=== PATIENT | male | born 1945 | race Hispanic/Latino ===

== ENCOUNTER 2018-10-07 20:51 | Inpatient (IN) | payer MEDICARE, MEDICAID ==
[2018-10-07 22:21] LABS: Lactic Acid 1.2 mmol/L (0.5-2.2)
[2018-10-07 22:26] LABS: Acetaminophen Less than 6.0 mcg/mL (10.0-30.0); Alcohol Less than 10 mg/dL (Less than 10); Salicylate Less than 8.0 mg/dL (15.0-30.0)
[2018-10-07 23:30] LABS: HBCM Index 0.06 S/CO (0-0.79); HBSAg Index 0.18 S/CO (0-0.99); Hep A IgM AB Non-Reactive (NonReactive); Hep A IgM S/CO 0.15 S/CO (0-0.79); Hep B Surf Ag Non-Reactive S/CO (NonReactive); Hep C IgG Ab Non-Reactive (NonReactive); Hep C Index 0.07 S/CO (0-0.79); Hepatitis B Core IgM Abs Non-Reactive (NonReactive)
--- NOTE | 2018-10-08 00:09 | ULT ---
RIGHT UPPER QUADRANT ULTRASOUND: 10/07/18 HISTORY: Jaundice and weakness, abdominal distention with nausea and vomiting. FINDINGS: The pancreas is obscured by bowel gas and not able to be evaluated on this exam. The liver demonstrates heterogeneous appearance with multiple small hypoechoic nodules seen throughou t the liver with largest measurable hypoechoic nodule in the right hepatic lobe measuring approximate ly 1.8 cm. Findings are suggestive of metastatic disease. There is suggestion of a more confluent are a of decreased echogenicity within the right hepatic lobe with this area measuring approximately 5.1 cm. the liver is enlarged measuring 21.5 cm in craniocaudal dimensions. There is shadowing echogenic material within the gallbladder lumen suggesting gallbladder calculi wit h probable small amount of sludge. Gallbladder wall is mildly thickened measuring 0.4 cm, but the gal lbladder is incompletely distended which probably accounts for this finding. The common duct where vi sualized measures 0.4 cm in diameter. However, there is questionable greater degree of dilatation inv olving the extrahepatic common duct, which measures 0.8 cm although this is difficult to definitely d etermine on this exam and again the pancreas is obscured for further evaluation of the common duct at the level of the pancreatic head. Limited visualized portions of the IVC and right kidney demonstrate a normal sonographic appearance. The right kidney measures 11.5 cm in length. Small amount of free fluid is seen adjacent to the liver. A small right pleural effusion is identified. IMPRESSION: 1. Hepatomegaly with heterogeneity of the liver with multiple hypoechoic nodules/masses within t he liver suggesting metastatic disease. CT scan abdomen and pelvis is recommended for further evaluat ion. 2. Cholelithiasis. Gallbladder wall does appear mildly thickened, but the gallbladder is incompl etely distended which may account for this finding. No pericholecystic fluid is identified. 3. Portion of the common duct appears normal in caliber, but there is portion of the common duct which appears more dilated, this is not well evaluated and this could be better assessed on a follow up CT exam. 4. Small amount of ascites adjacent to the liver. 5. Small right pleural effusion. POS: [facility]
[2018-10-08 02:56] VITALS: BMI 40.0
--- NOTE | 2018-10-08 08:01 | CT ---
PRELIMINARY REPORT/[facility]/EMERGENTY AFTER-HOURS PROCEDURE CT Abdomen and Pelvis Without Contrast EXAM DATE/TIME: 10/08/2018 1:35 AM CLINICAL HISTORY: 73 years old, male; Pain; Abdominal pain; Prior surgery; Patient HX: Er 19; M73 presents to ed xfer f rom another facility C/O jaundice onset x2-3 wks [employer]. PT reports cp, suprapubic abd pain, weakness, t remors, urinary incontinence, and slight abd distension onset x2-3 wks [employer]. PT also reports some new onset diffuse pruritus, and n/v. 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 Surgical history of prostatectomy TECHNIQUE: Axial computed tomography images of the abdomen and pelvis without contrast. Coronal reformatted images were created and reviewed. COMPARISON: No relevant prior studies available. FINDINGS: Lower thorax: Numerous up to 3 cm soft tissue nodules within the lungs. Moderate-large right pleural effusions. Mild-moderate right middle and lower lobe air space opacity-atelectasis. ABDOMEN: Liver: Enlarge 23 cm liver with extensive low density lesions - large confluent up to 10 x 18 cm area low density crossing right and left lobes of the liver. Gallbladder and bile ducts: Gallbladder appears contracted, limits evaluation. Rounded 1 mm calcific stones within the gallbladder. Pancreas: Ovoid 2 x 1.5 cm soft tissue structure along pancreas head and second portion duodenum. Spleen: Normal. No splenomegaly. Adrenals: Normal. No mass. Kidneys and ureters: Normal. No hydronephrosis. Stomach and bowel: Normal. No obstruction. No mucosal thickening. Appendix: Appendix - visualized portions appear normal. PELVIS: Bladder: Unremarkable as visualized. Reproductive: Prostate remains present with central calcifications. Subperitoneal space: Minimal perirectal and pelvic free fluid. ABDOMEN and PELVIS: Intraperitoneal space: Normal. No free air. No significant fluid collection. Bones/joints: Chronic degenerative changes of the lumbar spine. Extensive areas sclerosis throughout the osseous structures, particularly ribs, spine, pelvis. Soft tissues: Right inguinal surgical clips. Vasculature: Chronic atherosclerotic calcification of the vasculature. Lymph nodes: Multiple up to 1.5 cm diaphragmatic lymph nodes. IMPRESSION: 1. Prostate present. 2. Findings may represent primary neoplasm in liver-cholangiocarcinoma vs. extensive hepatic metasis. 3. Multiple lung nodules, areas sclerosis involving osseous structures, anterior diaphragmatic lympha denopathy - suspicious for metastatic disease. 4. Ovoid 2 x 1.5 cm soft tissue structure along pancreas head and second portion duodenum. - Possible enlarged lymph node vs pancreatic mass. Post contrast study is recommended. 5. Minimal perirectal and pelvic free fluid. 6. Contracted gallbladder with small internal stones. No evidence of intrahepatic or extrahepatic mis iary ductal dilatation. 7. Moderate-large right pleural effusions. Mild-moderate right middle and lower lobe air space opacit yatelectasis. Thank you for allowing us to participate in the care of your patient. Dictated and Authenticated by: Natalie Valdez MD 10/08/2018 3:54 AM Central Time ([place] & [place]) FINAL REPORT CT ABDOMEN AND PELVIS WITHOUT CONTRAST: HISTORY: Abdominal pain. Complaining of jaundice. TECHNIQUE: Noncontrast enhanced CT images of the abdomen and pelvis were obtained. FINDINGS: The images demonstrate extensive lung metastatic lesions. A right-sided pleural effusion is seen. E xtensive areas of heterogeneity are seen within the liver, compatible with extensive hepatic metastas es. There is a peripancreatic mass to the right of the pancreatic head, most compatible with a retro peritoneal lymph node and/or metastases. Cholelithiasis is noted. A preliminary exam was performed by [facility]. I concur with the dictation from [facility]. POS: [facility]
[2018-10-08] MEDS ORDERED: Prevnar 13-Val Conj/PF 0.5 ML SYRINGE IM ONE (09:00)
[2018-10-08] MEDS ORDERED: Iopamidol 370 76% 50 ML VIAL FS ONE (09:25)
[2018-10-08] MEDS: Sodium Chloride 0.9% 1,000 ML IV SCH (10:49)
--- NOTE | 2018-10-08 11:00 | RAD ---
LEFT HIP RADIOGRAPHS TWO VIEWS: 10/08/2018 PROVIDED CLINICAL HISTORY: Pain, status post fall. FINDINGS: There is no evidence for fracture or other acute osseous abnormality. If there is persistent clinica l concern, conservative management and follow-up imaging are advised. IMPRESSION: As above. POS: [facility]
--- NOTE | 2018-10-08 11:01 | RAD ---
LEFT KNEE RADIOGRAPHS FOUR VIEWS: 10/08/2018 PROVIDED CLINICAL HISTORY: Left knee pain, status post injury. FINDINGS: There is no evidence for fracture or other acute osseous abnormality. If there is persistent clinica l concern, conservative management and follow-up imaging are advised. IMPRESSION: As above. POS: [facility]
--- NOTE | 2018-10-08 13:39 | HP ---
CHIEF COMPLAINT: Generalized weakness. HISTORY OF PRESENT ILLNESS: This patient is a 73-year-old male, who states he was feeling well until couple of months ago. At that time, he started having some pain in his upper abdomen, it simply progressed. Since then, he has had some associated shortness of breath. He also has had decreased appetite, some watery emesis, and a decrease in bowel movements. The patient's family noted that he was having some generalized weakness and weight loss and have been encouraging to come to get evaluated; however, the patient had held off until this admission when the family finally convinced him that he needed to come to the hospital and get evaluated. The patient also reports that due to his weakness, he fell a couple of weeks ago and has had some pain in his left knee and left hip. REVIEW OF SYSTEMS: The patient does noticed the discoloration of his skin. He has had decreased bowel movements. He has had urinary incontinence since his prostate cancer treatment 25 years ago [address] [facility]. He has had no appetite, some nausea, some vomiting, decreased bowel movements, and pain in his left hip and knee. No fevers or chills. He does have some shortness of breath, but no cough. All other systems were reviewed and all pertinent positives and negatives noted in the history of present illness. PAST MEDICAL HISTORY: Only notable for the prostate cancer treated at [facility] 25 years ago with surgery, chemotherapy, and external beam radiation therapy. PAST SURGICAL HISTORY: Only the prostate surgery as mentioned above. FAMILY HISTORY: Mother at 97. Father at 85 of lung cancer. Brother with cancer as well. SOCIAL HISTORY: The patient is single. He has no kids. He has a history of smoking, but quit 20 years ago. States he was never a heavy smoker. He also quit drinking alcohol about 20 years ago. Also states he was never a heavy drinker. The patient does not have a primary care physician. He lives in [place]. He is full code and his brother Mason would be his surrogate decision maker should that become necessary. ALLERGIES: NONE. MEDICATIONS: None. PHYSICAL EXAMINATION: VITAL SIGNS: Temperature is 97.8, pulse 89, respirations 18, O2 saturation 94% on room air, and BP is 118/58. GENERAL APPEARANCE: Age-appropriate male. He is generally jaundiced. He is awake and alert, appropriate, no distress. HEENT: He has icteric sclerae. No acute lesions. Denture is in place. NECK: Supple and symmetric with no lymphadenopathy, JVD, or bruits. HEART: Regular rate and rhythm without murmurs, gallops, or rubs. LUNGS: Diminished in the right base with otherwise no wheezes or rales. He does have slightly generally diminished breath sounds. ABDOMEN: He has slight tenderness in the suprapubic area. His right upper quadrant is not significantly tender. However, he has enlarged liver margin, which is palpable below the ribs about 4 to 5 cm. Bowel sounds are normal. EXTREMITIES: He has mild chronic appearing edema of the right lower extremity, which is nonpitting, otherwise appears to have no cyanosis or clubbing. He has relatively good range of motion with the left hip and knee. LABORATORY DATA: White count 14.9, hemoglobin 11.8, platelets 372. INR is 1.3 and PTT 37.7. Sodium 136, potassium 4.1, chloride 105, CO2 is 16, BUN 72, creatinine is 2.51, and glucose 111. Lactic acid 2.3 with subsequent at 1.2. Total bilirubin is 17.1, AST 413, ALT 243, alkaline phosphatase 1579, and ammonia is 42. Troponin 0.013 and 0.011 and BNP 29. Albumin is 2.5, globulin 4.0, and lipase 132. His toxicology screen is negative. Hepatitis panel is negative. Chest x-ray shows some right lower lobe opacity concerning for possible infiltrate. Ultrasound of the abdomen reveals hepatomegaly with heterogeneity of the liver and multiple hyperechoic nodules/masses within the liver suggesting metastatic disease. CT is recommended. The gallbladder wall does appear mildly thickened, but it is incompletely distended, portion of the common duct appears normal in caliber. There is a portion of the common duct, which appears more dilated, it is not well evaluated. Small amount of ascites adjacent to the liver and small right pleural effusion. CT scan reveals presence of a prostate findings concerning for primary neoplasm in the liver, cholangiocarcinoma versus extensive hepatic metastasis. There are multiple lung nodules, areas of sclerosis involving osseous structures, anterior diaphragmatic lymphadenopathy suspicious for metastatic disease, an ovoid 2 x 1.5 cm soft tissue structure on the pancreatic head and second portion of the duodenum. Possible enlarged lymph node versus a pancreatic mass. Minimal perirectal and peripelvic fluid. No evidence of intrahepatic or extrahepatic biliary duct dilatation. [id number] right pleural effusion and [id number] right middle and lower lobe airspace opacity, atelectasis. IMPRESSION AND PLAN: 1. Acute liver failure with evidence of significant neoplastic disease involving the liver. 2. Neoplastic process involving the liver of the biliary tract, lymph nodes, and lung. Etiology at this point is unknown. We will need to pursue possible biopsy. We will ask Gastroenterology to see the patient in light of the extensive liver disease to see if this is something that can be pursued from their perspective in regard to attempting biopsy. The patient has a history of prostate cancer, appears that a prostate is present, which should not be the case. We will check a PSA, although it seems like unlikely metastatic pattern 25 years after a prostate cancer. 3. Acute renal failure. Consult Nephrology. We will gently hydrate. May need some albumin. 4. Pleural effusion, likely secondary to the liver disease. The patient feels subjectively short of breath, but my impression is this is more likely related to the liver enlargement and is related to the pleural effusion. He is borderline hypoxic. We will continue to monitor. He would be slightly high risk for thoracentesis. 5. Left hip and knee pain. We will obtain plain films just to ensure there is no evidence of metastatic disease. We will get Physical Therapy to evaluate. 6. Disposition. We will get Palliative Care consult. Job ID: [id number]
[2018-10-08] MEDS: HYDROcodone/Acetaminophen 5/325 mg Tablet PO PRN (14:55)
[2018-10-08] MEDS: Albumin 25% 25 GM/100 ML BOT IVPB SCH ×2 (17:31→22:51)
--- NOTE | 2018-10-08 17:53 | CON ---
DATE OF CONSULTATION: HISTORY OF PRESENT ILLNESS: Mr. Phillip is a 73-year-old male, who was admitted for abdominal pain and generalized weakness. Imaging of the belly showed multiple liver lesions suggestive of metastatic liver cancer. We are now being consulted for his acute kidney injury. Please note, this patient has history of decreased p.o. intake as well as weight loss. REVIEW OF SYSTEMS: Positive for abdominal pain. No nausea. No vomiting. Decreased appetite. Decreased energy level. Positive for weight loss. No diarrhea. No constipation. No dysuria. No urinary frequency. No productive cough. No fever or chills. No syncopal episode. No headache. No shortness of breath. Positive for abdominal pain. No dysuria. PAST MEDICAL HISTORY: History of prostate cancer, status post radiation and chemotherapy? status post prostate biopsy. PAST SURGICAL HISTORY: Status post prostate biopsy. SOCIAL HISTORY: The patient is single. He has no children. He is not . Lives in [place]. He is a retired employee of a [employer]. Education, 5th grade. Lives alone. No alcohol. No smoking. No IV drug abuse. No blood transfusion. ALLERGIES: NONE. TRAUMA: None. IMMUNIZATION: Not Up-to-date. HOSPITALIZATIONS: Please see past medical history. FAMILY HISTORY: No family history of ESRD. PHYSICAL EXAMINATION: VITAL SIGNS: Blood pressure 112/58, heart rate 93, respiratory rate 20, temperature 97.8, and pulse ox 94%. GENERAL: Noted to be awake, alert, supine, comfortable, obese, not in distress. SKIN: Adequate turgor. HEENT: He has pinkish conjunctivae. Anicteric sclerae. No neck mass. No carotid bruits. No JVD. CHEST: No deformities. LUNGS: Clear breath sounds. No wheezing. No crackles. HEART: Normal sinus rhythm. No murmurs, gallops, or rubs. ABDOMEN: Globular, soft, and nontender. No masses. EXTREMITIES: No edema. No deformities. MEDICATIONS: Currently normal saline 75 mL/h and [place] 5/325 q.4h p.r.n. LABORATORY DATA: Laboratories of October 07, 2018; white count 14.9, hemoglobin 11.8. Sodium 136, potassium 4.1, chloride 106, carbon dioxide 16, BUN 72, creatinine 2.51, glucose 111, calcium 8.1, AST 413, ALT 243, alkaline phosphatase 1579, albumin 2.5. Troponin I less than 0.010. PSA is 0.38. DIAGNOSTIC DATA: CT scan of the abdomen and pelvis shows an enlarged liver with multiple hypodense lesions-hepatic metastasis versus neoplasm in the liver/cholangiocarcinoma. He has also multiple lung nodules. There is an ovoid finding in the head of the pancreas. There is a minimal perirectal fluid. He has also moderate large right pleural effusions. ASSESSMENT AND PLAN: 1. Acute kidney injury consider hemodynamically-mediated renal dysfunction. In addition, we will rule out acute tubular necrosis by doing urinalysis. We will also review urine chemistries. For the moment due to the weight loss and decreased p.o. intake, continue normal saline. I have added albumin 25 g IV q.6 hours for the next 3 days. There is no indication for any dialytic intervention. 2. Metastatic liver disease/primary liver cancer-GI to evaluate the patient. For the moment, agree with current management. Continue supportive care. Job ID: [id number] MTDD
[2018-10-08] MEDS ORDERED: GoLYTELY 4,000 ml Bottle PO SCH (19:30)
--- NOTE | 2018-10-08 21:12 | CON ---
DATE OF CONSULTATION: 10/08/2018 HISTORY OF PRESENT ILLNESS: The patient is a 73-year-old gentleman, who reports he was in his normal state of health until two weeks ago when he fell and hit his abdomen and lower extremities. Since then, he has been having pain. He has lost a large amount of weight, and then family members noticed he was becoming jaundice, and sought care in the emergency room. He has been vomiting. He denies any melena or hematochezia. He has not seen a physician in 30 years. PAST MEDICAL HISTORY: Significant for prostate cancer. PAST SURGICAL HISTORY: Includes prostate surgery. MEDICATIONS: None. ALLERGIES: NO KNOWN MEDICAL ALLERGIES. SOCIAL HISTORY: He stopped smoking and drinking 30 years ago. FAMILY HISTORY: Negative for GI or liver disease. REVIEW OF SYSTEMS: Ten systems review were negative except for above. PHYSICAL EXAMINATION: GENERAL: An elderly male, in no acute distress. VITAL SIGNS: Temperature 97.6, pulse 92, respiratory rate 20, blood pressure 113/66. HEENT: Some scleral icterus. NECK: Supple. CHEST: Clear. CARDIOVASCULAR: Regular rate and rhythm. ABDOMEN: Soft, nontender without organomegaly or masses. He has a large inguinal hernia in the right groin. EXTREMITIES: Normal. NEUROLOGIC: Nonfocal. LABORATORY DATA: Negative hepatitis serology. CT of the abdomen and pelvis showed a calcified prostate present. Multiple hepatic masses, multiple lung nodules, and an ovoid 2 x 1.5 cm soft tissue structure along the pancreatic head, some minimal perirectal and pelvic free fluid, contracted gallbladder with small internal stones, but no ductal dilatation, and moderate large right pleural effusion. ASSESSMENT: 1. Liver metastasis of unknown etiology. 2. Multiple lung nodules. 3. History of prostate cancer. 4. Cholelithiasis. RECOMMENDATIONS: 1. EGD, colonoscopy. 2. If that does not reveal the source of the patient's metastatic disease, then liver biopsy would be the best bet to obtain tissue. 3. Tumor markers. 4. PSA. Job ID: [id number]
[2018-10-09] MEDS: Sodium Chloride 0.9% 1,000 ML IV SCH ×4 (02:18→20:34)
[2018-10-09] MEDS: HYDROcodone/Acetaminophen 5/325 mg Tablet PO PRN (02:22)
[2018-10-09] MEDS: Albumin 25% 25 GM/100 ML BOT IVPB SCH ×2 (03:55→09:55)
[2018-10-09 04:24] LABS: #Eosinphils 0.1 thou/uL (0.0-0.7); #Lymphocytes 1.5 thou/uL (1.20-3.40); #Monocytes 0.8 thou/uL (0.11-0.59); #Neutrophils 12.4 thou/uL (1.40-6.50); %Basophils 0.1 % (0.0-1.0); %Eosinophils 0.5 % (0.0-10.0); %Lymphocytes 10.4 % (21.0-51.0); %Monocytes 5.5 % (0.0-10.0); %Neutrophils 83.4 % (42.0-75.0); Hemoglobin 9.9 g/dL (14.0-18.0); Mean Corpuscular HGB CONC 32.6 g/dL (32.0-36.0); Mean Corpuscular Hemoglobin 28.4 pg (27.0-31.0); Mean Corpuscular Volume 87.2 fL (78.0-98.0); Mean Platelet Volume 7.9 fL (7.4-10.4); Platelet Count 335 thou/uL (130-400); RBC Distribution Width 14.9 % (11.5-14.5); Red Blood Cell (RBC) Count 3.49 mill/uL (4.70-6.10); White Blood Cell (WBC) Count 14.8 thou/uL (4.8-10.8)
[2018-10-09 04:29] LABS: Anion Gap 18 mmol/L (10-20); BUN (Urea Nitrogen) 64 mg/dL (8.4-25.7); Calc. Creatinine Clearance 39 mL/min (70-130); Calcium 8.8 mg/dL (7.8-10.44); Carbon Dioxide 18 mmol/L (23-31); Chloride 107 mmol/L (98-107); Estimated GFR-MDRD 24; Glucose 82 mg/dL (83-110); Potassium 4.3 mmol/L (3.5-5.1); Sodium 139 mmol/L (136-145)
[2018-10-09] MEDS ORDERED: Ondansetron ODT 4 MG TAB PO PRN (07:31)
[2018-10-09] MEDS ORDERED: Bisacodyl 5 MG TAB PO PRN (07:31)
[2018-10-09] MEDS ORDERED: Loperamide HCl 2 MG CAP PO PRN (07:31)
[2018-10-09] MEDS ORDERED: Ondansetron PF 4 MG/2 ML Vial IVP PRN (07:31)
[2018-10-09] MEDS ORDERED: Eucerin (Mineral Oil/Petrolatum,White) 30 gm Jar TOP PRN (07:31)
[2018-10-09] MEDS ORDERED: Sodium Chloride 0.65% Nasal 44 ML BOT EA NARE PRN (07:31)
[2018-10-09] MEDS ORDERED: hydrALAZINE 20 MG/ML VIAL SLOW IVP PRN (07:31)
[2018-10-09] MEDS ORDERED: Loratadine 10 MG TAB PO PRN (07:31)
[2018-10-09] MEDS ORDERED: Senokot S 8.6-50 MG TAB PO PRN (07:31)
[2018-10-09] MEDS ORDERED: Calcium Carbonate 500 MG ChewTAB PO PRN (07:31)
[2018-10-09] MEDS ORDERED: Cepastat Lozenges 1 LOZ PO PRN (07:31)
[2018-10-09] MEDS ORDERED: Artificial Tears 18 DROP/0.9 ML EA EYE PRN (07:31)
--- NOTE | 2018-10-09 08:46 | PRG ---
DATE OF SERVICE: 10/09/2018 SERVICE: Renal Medicine. SUBJECTIVE: Mr. Phillip is a 73-year-old male, seen by the Renal Service for his acute kidney injury. The patient is currently being volume repleted for a possibility of hemodynamically-mediated renal dysfunction. He was also seen by the GI Service due to findings of metastatic lesions to the liver and the lungs. He is supposed to undergo upper GI and lower GI endoscopy today. In addition, he has history of prostate cancer, but the PSA is said to be within normal. The patient denies any chest pain or shortness of breath. The patient is currently receiving IV albumin as well as normal saline. OBJECTIVE: VITAL SIGNS: Blood pressure 95/53, heart rate 84, respiratory rate 16, temperature 97.6, and pulse ox 94%. GENERAL: The patient is awake, alert, comfortable, not in distress. SKIN: Adequate turgor. HEENT: He has pinkish conjunctivae. Anicteric sclerae. NECK: No neck mass. No carotid bruits. No JVD. CHEST: No deformities. LUNGS: Decreased breath sounds. HEART: Normal sinus rhythm. No murmur. No gallops. No rubs. ABDOMEN: Globular, soft, nontender. No masses. EXTREMITIES: No edema. No deformities. MEDICATIONS: Medications of October 09, 2018, was reviewed. LABORATORY DATA: Laboratories of October 09, 2018; white count 14.8, hemoglobin 9.9. Sodium 139, potassium 4.3, chloride 107, carbon dioxide 18, BUN 64, and creatinine 2.66. Carcinoembryonic antigen noted at 11,574. PSA 0.38. ASSESSMENT AND PLAN: 1. Acute kidney injury, most likely hemodynamically-mediated renal dysfunction. Empiric volume repletion. Currently, on normal saline and albumin. My plan is to increase the normal saline to 125 mL/hour. The patient is also mildly hypotensive but is asymptomatic. 2. Metastatic liver lesion - primary is unknown. The patient will be undergoing an upper and lower GI endoscopy. GI is following. Overall, prognosis remains guarded with this patient. Recheck basic metabolic panel and CBC in a.m. Job ID: [id number]
--- NOTE | 2018-10-09 09:49 | PDOC.PN ---
- Subjective Encounter Start Date: 10/09/18 Encounter Start Time: 07:10 -: old records requested/rev Patient seen and examined. No new complaints. No overnight events - Objective Resuscitation Status - Order Detail: 10/08/18 08:27 Resuscitation Status Routine Resuscitation Status: FULL: Full Resuscitation Discussed with: Patient Additional comments: Brother Navjot Cuevas is his surrogate decision maker if necessary MAR Reviewed: Yes Vital Signs & Weight: Vital Signs (12 hours) Temp Pulse Resp BP BP Pulse Ox 10/09/18 08:25 97.7 F 87 20 110/56 L 94 L 10/09/18 08:00 94 L 10/09/18 04:00 97.6 F 84 16 95/53 L 94 L 10/08/18 23:17 97.7 F 100 20 95/59 L 96 Weight Weight 247 lb 15.968 oz I&O: 10/08/18 10/09/18 10/10/18 06:59 06:59 06:59 Intake Total 0 800 Balance 0 800 Result Diagrams: 10/09/18 03:52 10/09/18 03:52 Radiology Reviewed by me: Yes (CT, US noted) Phys Exam - Physical Examination Constitutional: NAD HEENT: PERRLA, moist MMs icterus+ Neck: no JVD, supple Respiratory: no wheezing, no rales, no rhonchi Cardiovascular: RRR, no significant murmur, no rub Gastrointestinal: soft, non-tender, no distention, positive bowel sounds Musculoskeletal: no edema, pulses present Neurological: non-focal, normal sensation Lymphatic: no nodes Psychiatric: normal affect, A&O x 3 Skin: no rash, normal turgor Dx/Plan (1) Acute kidney failure Status: Acute (2) Atelectasis, right Code(s): J98.11 - ATELECTASIS Status: Acute (3) Cholelithiases Code(s): K80.20 - CALCULUS OF GALLBLADDER W/O CHOLECYSTITIS W/O OBSTRUCTION Status: Acute (4) Metastatic cancer Code(s): C79.9 - SECONDARY MALIGNANT NEOPLASM OF UNSPECIFIED SITE Status: Acute (5) Pancreatic mass Status: Acute (6) Pleural effusion, right Code(s): J90 - PLEURAL EFFUSION, NOT ELSEWHERE CLASSIFIED Status: Acute (7) Anemia, normocytic normochromic Code(s): D64.9 - ANEMIA, UNSPECIFIED Status: Chronic (8) Morbid obesity with BMI of 40.0-44.9, adult Code(s): E66.01 - MORBID (SEVERE) OBESITY DUE TO EXCESS CALORIES; Z68.41 - BODY MASS INDEX (BMI) 40.0-44.9, ADULT Status: Chronic - Plan cont current plan of care * pt has advanced metastatic cancer, primary site is unclear but likely GI tract , today EGD and colonoscopy * oncology will be consulted * palliative care consulted * prognosis is poor * medication reviewed as below * symptomatic treatment. Review of Systems - Review of Systems ENT: negative: Ear Pain, Ear Discharge, Nose Pain, Nose Discharge, Nose Congestion, Mouth Pain, Mouth Swelling, Throat Pain, Throat Swelling, Other Respiratory: negative: Cough, Dry, Shortness of Breath, Hemoptysis, SOB with Excertion, Pleuritic Pain, Sputum, Wheezing Cardiovascular: negative: chest pain, palpitations, orthopnea, paroxysmal nocturnal dyspnea, edema, light headedness, other Gastrointestinal: negative: Nausea, Vomiting, Abdominal Pain, Diarrhea, Constipation, Melena, Hematochezia, Other Genitourinary: negative: Dysuria, Frequency, Incontinence, Hematuria, Retention , Other Musculoskeletal: negative: Neck Pain, Shoulder Pain, Arm Pain, Back Pain, Hand Pain, Leg Pain, Foot Pain, Other - Medications/Allergies Allergies/Adverse Reactions: Allergies Allergy/AdvReac Type Severity Reaction Status Date / Time No Known Drug Allergies Allergy Verified 10/08/18 07:53 Medications: Current Medications Hydrocodone Bitart/Acetaminophen ([place] 5/325) 1 tab PO Q4H PRN PRN Reason: Pain Last Admin: 10/09/18 02:22 Dose: 1 tab Albumin Human (Albumin 25%) 25 gm IVPB Q6H ODIN Stop: 10/09/18 10:01 Last Admin: 10/09/18 03:55 Dose: 25 gm Artificial Tears (Tears Naturale) 2 drop EA EYE PRN PRN PRN Reason: Dry Eyes Bisacodyl (Dulcolax) 10 mg PO DAILYPRN PRN PRN Reason: Constipation Calcium Carbonate (Tums) 1,000 mg PO Q4H PRN PRN Reason: Heartburn or Indigestion Guaifenesin (Robitussin Sf) 200 mg PO Q4H PRN PRN Reason: Cough Hydralazine HCl (Apresoline) 10 mg SLOW IVP Q4H PRN PRN Reason: SBP > 180 and HR < 70 Sodium Chloride (Normal Saline 0.9%) 1,000 mls @ 75 mls/hr IV .[id number] COUNT INCLUDES [facility] Last Admin: 10/09/18 02:21 Dose: 1,000 mls Loperamide HCl (Imodium) 2 mg PO PRN PRN PRN Reason: Diarrhea/Loose Stools Loratadine (Claritin) 10 mg PO DAILYPRN PRN PRN Reason: Sinus Symptoms Mineral Oil/White Petrolatum (Eucerin Cream) 0 gm TOP BIDPRN PRN PRN Reason: Dry Skin Ondansetron HCl (Zofran Odt) 4 mg PO Q6H PRN PRN Reason: Nausea/Vomiting Ondansetron HCl (Zofran) 4 mg IVP Q6H PRN PRN Reason: Nausea/Vomiting Senna/Docusate Sodium (Senokot S) 2 tab PO BID PRN PRN Reason: Constipation Sodium Chloride ([place] Nasal [place] 0.65%) 0 ml EA NARE QIDPRN PRN PRN Reason: Nasal Congestion Throat Lozenges (Cepastat Lozenges) 1 lakshmi PO Q2H PRN PRN Reason: Sore Throat
[2018-10-09] MEDS ORDERED: PROVENTIL INHALER 6.7 G (200 INHALATIONS) ONE (12:52)
[2018-10-09] MEDS ORDERED: PHENYLEPHRINE-NS 100 MCG/ML 10 ML SYRINGE ONE (12:52)
[2018-10-09] MEDS ORDERED: PROPOFOL 200 MG/20 ML VIAL ONE (12:52)
[2018-10-09] MEDS ORDERED: Lidocaine 1% PF 5 ML VIAL ONE (12:52)
--- NOTE | 2018-10-09 13:48 | ULT ---
SCROTAL ULTRASOUND: CLINICAL HISTORY: Edema. FINDINGS: There is significant soft tissue prominence of the scrotum with interspersed, linear oriented decreas ed echogenicity, compatible with edema. Testes and epididymides are not visualized for comment. IMPRESSION: 1. Prominent soft tissues of the scrotum. This may relate to infectious or inflammatory process. C orrelate clinically. 2. Nonvisualization of either testis or epididymis. Follow-up imaging may be obtained upon resolution of soft tissue prominence, as clinically indicated. POS: ALICE
--- NOTE | 2018-10-09 15:16 | CON ---
DATE OF CONSULTATION: REASON FOR CONSULT: Metastatic disease. HISTORY OF PRESENT ILLNESS: Mr. Phillip is a pleasant 73-year-old gentleman only with remote history of prostate cancer 25 years ago, who over the last several weeks has been having abdominal pain, decreased appetite, and generalized weakness. He was brought to the emergency room for further evaluation by his family. He underwent abdomen and pelvis CT, which showed multiple lung nodules measuring up to 3 cm. He had a [id number] right pleural effusion. He had an enlarged liver measuring 23 cm with a confluent area measuring 10 x 18 cm concerning for malignancy. He had a 2 x 1.5 cm soft tissue density at the pancreatic head. He was jaundiced with a bilirubin of 17. He was admitted for further workup. His PSA was 0.38. His AFP was 3.0. His CEA was 11,574. GI has been consulted and we were asked consulted for assistance with diagnosis. PAST MEDICAL AND SURGICAL HISTORY: 1. Prostate cancer, status post surgery, chemo, and external beam radiation. 2. Engorged testicles since prostate cancer. ALLERGIES: NO KNOWN DRUG ALLERGIES. HOME MEDICATIONS: None. FAMILY HISTORY: Father from lung cancer, was a smoker. SOCIAL HISTORY: Single. Remote history of smoking, quit 30 years ago. Denies alcohol or illicit drug use. REVIEW OF SYSTEMS: A 10-point review of systems is negative except for noted in HPI. PHYSICAL EXAMINATION: VITAL SIGNS: Temperature is 97.7, pulse is 87, respiratory rate 20, blood pressure is 110/56. He is 94% on room air. GENERAL: Well-developed, well-nourished male, in no acute distress. HEENT: Normocephalic and atraumatic. Pupils equal and reactive to light. sclera icteric. NECK: Supple. CV: Regular rate and rhythm. LUNGS: Clear. ABDOMEN: Obese. He has a palpable liver. He has a possible inguinal hernia with enlarged scrotum. EXTREMITIES: No clubbing, cyanosis, or edema. SKIN: No rash. Positive jaundice. HEMATOLOGIC: No petechiae or purpura. NEUROLOGICAL: Nonfocal. PSYCH: The patient is alert, oriented and appropriate. PERTINENT LABS AND X-RAYS: Current WBCs 14.8, hemoglobin 9.9, hematocrit 30.4, and platelet count 335,000. 84% neutrophils, 10% lymphocytes. PT 16.5, INR is 1.3 , PTT 37.7. Sodium is 136, potassium 4.1, chloride 105, CO2 of 16, BUN is 72, creatinine 2.51, lactic acid is 1.2, calcium 8.1, bilirubin is 17.1, AST is 413, ALT is 243 , alkaline phosphatase is 1579. Ammonia is 42. BNP is 29. Serum total protein 6.5, albumin 2.5, globulin 4.0. Hepatitis panel negative. Radiology per HPI. ASSESSMENT: 1. Metastatic disease of the liver. 2. Likely metastatic lung lesions. 3. Right pleural effusion. 4. Elevated CEA. 5. Acute kidney injury. 6. Possible biliary obstruction. DISCUSSION: GI is planning an EGD and colonoscopy today for biopsy. If biopsies are nondiagnostic, he will need a CT-guided liver biopsy. He will require close monitoring of his liver and kidney. If these counts do no improve, it will be very difficult to treat patient with chemotherapy. Further recommendations will be based on biopsy results. Thank you for the consult. Job ID: [id number] [facility]ALK[facility]
[2018-10-09] MEDS ORDERED: Ondansetron HCl/PF 4 MG/2 ML Vial IVP PRN (16:02)
--- NOTE | 2018-10-09 16:57 | OP ---
DATE OF PROCEDURE: 10/09/2018 MIME ARTIST SURGEON: None. PROCEDURE PERFORMED: 1. Esophagogastroduodenoscopy with biopsies. 2. Colonoscopy with biopsies. INDICATIONS: 1. Metastatic disease to liver and lung, unknown origin. 2. Elevated CEA level. MEDICATIONS: See Anesthesia record. FINDINGS: After discussion of the risks, benefits, and alternatives of the procedure, informed consent was obtained and witnessed. Pre-endoscopic cardiopulmonary examination was satisfactory. A time-out was performed before sedation was achieved. Sedation was achieved with Anesthesia assistance in the endoscopy unit. A Pentax adult upper endoscope was placed into the oropharynx and passed through the cricopharyngeus under direct visualization. The esophageal mucosa appeared normal in the proximal mid esophagus, but in the distal esophagus, there was evidence of severe erosive esophagitis with several large linear ulcerations extending up several centimeters from the GE junction. There is no mass at the gastroesophageal junction. No evidence of varices. The endoscope was advanced into the stomach. Forward and retroflexed views of the entire gastric mucosa were obtained. The gastric mucosa appears erythematous and edematous with a few small erosions in the gastric antrum and body. Biopsies were obtained from the gastric antrum and body to rule out H pylori infection. There was a single small umbilicated nodule in the gastric body, which may just represent benign gastric erosion, but biopsies were separately obtained of this gastric nodule. The endoscope was passed through the pylorus and into the first and second portions of the duodenum. In the posterior part of the duodenal bulb, there is a shallow small ulceration. There are several other smaller erosions throughout the first and second portions of the duodenum. The upper endoscope was completely withdrawn and the patient was repositioned. Digital rectal exam was performed, which was unremarkable. A Pentax adult colonoscope was inserted into the rectum and passed forward to the cecum in the usual fashion. The cecal base was identified by the appendiceal orifice as well as the ileocecal valve. The terminal ileum was not intubated. The colonoscope was then slowly withdrawn in a gradual and circumferential manner with careful examination of the entire colonic mucosa. The quality of the prep was good. In the ascending colon, there was a sessile polyp measuring about 7 mm in diameter. This was not removed. In the sigmoid colon, there is a large nonobstructing friable mass. This appears likely malignant. It is located from 30 to 35 cm from the anal verge. Just proximal to this mass, there is a separate large pedunculated polyp, which I did not attempt to remove today. I obtained multiple biopsies of this sigmoid colon mass and I tattooed the area submucosally. Note that due to difficulty with submucosal injection as well as scarcity of the tattoo pigment, only about 1 mL of tattoo ink was successfully injected submucosally, on the opposite side from the lesion. Retroflexion in the rectum demonstrated internal hemorrhoids. The colonoscope was completely withdrawn and the patient allowed to recover. The patient tolerated the procedure well. There were no immediate postprocedure complications. IMPRESSION: 1. Large nonobstructing sigmoid colon mass from 30 to 35 cm from the anal verge, biopsied. Tattooed submucosally opposite to the lesion, only about 1 mL of tattoo ink successfully injected. 2. Large pedunculated sigmoid polyp just proximal to the sigmoid mass, not removed. 3. A 7-mm ascending colon polyp, not removed. 4. Internal hemorrhoids. 5. Severe distal esophagitis. 6. Erosive gastritis and duodenitis, biopsied. 7. Small gastric nodule, biopsied separately. RECOMMENDATIONS: 1. Follow up pathology results. 2. Anticipate Oncology and possibly surgical consultation once biopsy results become available. I do anticipate that this will come back to be colonic adenocarcinoma. Note that the mass is nonobstructing and the patient already has a significant burden of widespread metastatic disease. 3. Advanced diet. 4. Daily PPI. Job ID: [id number]
[2018-10-10 04:28] LABS: #Eosinphils 0.1 thou/uL (0.0-0.7); #Lymphocytes 1.2 thou/uL (1.20-3.40); #Monocytes 0.9 thou/uL (0.11-0.59); #Neutrophils 11.8 thou/uL (1.40-6.50); %Eosinophils 0.8 % (0.0-10.0); %Lymphocytes 8.8 % (21.0-51.0); %Monocytes 6.7 % (0.0-10.0); %Neutrophils 83.7 % (42.0-75.0); Hemoglobin 9.9 g/dL (14.0-18.0); Mean Corpuscular HGB CONC 32.9 g/dL (32.0-36.0); Mean Corpuscular Hemoglobin 28.6 pg (27.0-31.0); Mean Corpuscular Volume 87.1 fL (78.0-98.0); Mean Platelet Volume 7.9 fL (7.4-10.4); Platelet Count 310 thou/uL (130-400); RBC Distribution Width 14.8 % (11.5-14.5); Red Blood Cell (RBC) Count 3.47 mill/uL (4.70-6.10); White Blood Cell (WBC) Count 14.1 thou/uL (4.8-10.8)
[2018-10-10 04:44] LABS: Anion Gap 16 mmol/L (10-20); BUN (Urea Nitrogen) 71 mg/dL (8.4-25.7); Calc. Creatinine Clearance 36 mL/min (70-130); Calcium 8.7 mg/dL (7.8-10.44); Carbon Dioxide 20 mmol/L (23-31); Chloride 105 mmol/L (98-107); Estimated GFR-MDRD 21; Glucose 94 mg/dL (83-110); Potassium 3.7 mmol/L (3.5-5.1); Sodium 137 mmol/L (136-145)
--- NOTE | 2018-10-10 07:19 | PRG ---
DATE OF SERVICE: 10/10/2018 SERVICE: Renal Medicine. SUBJECTIVE: Mr. Phillip is a 73-year-old male, who was seen for an acute kidney injury. Initially, we felt that this was a hemodynamically-mediated renal dysfunction. IV fluid - crystalloids and colloids was given, but no significant improvement. My plan is to continue current management. There is no indication for any dialytic intervention. He did undergo a colonoscopy and an upper GI endoscopy yesterday. Colonoscopy showed large nonobstructing sigmoid colon mass. This may be the primary source of his metastatic liver disease. No new complaints today. No chest pain or shortness of breath. OBJECTIVE: VITAL SIGNS: Blood pressure is noted at 140/71, heart rate 95, respiratory rate 20, temperature 98, and pulse ox 93%. GENERAL: Awake, supine, comfortable, not in overt distress, obese. SKIN: Adequate turgor. HEENT: He has pinkish conjunctivae. Anicteric sclerae. NECK: No neck mass. No carotid bruits. No JVD. CHEST: No deformities. LUNGS: Clear breath sounds. HEART: Normal sinus rhythm. No murmurs. No gallops. No rubs. ABDOMEN: Globular, soft, nontender. No masses. EXTREMITIES: No edema. No deformities. MEDICATIONS: Medications of October 10, 2018, was reviewed. LABORATORY DATA: Laboratories of October 10, 2018, showed white count 14.1, hemoglobin 9.9. Sodium 137, potassium 3.7, chloride 105, carbon dioxide 20, BUN 71, creatinine 2.91, calcium 8.7, and glucose 94. CA19-9 antigen 468. ASSESSMENT AND PLAN: 1. Metastatic liver disease - most likely etiology is from a presumptive colon carcinoma. GI is following. Oncology has been consulted. 2. Acute kidney injury - initially felt to be a hemodynamically-mediated renal dysfunction. My bias is to continue current IV hydration. Increase normal saline to 125 mL/hour. There is no indication for an emergent hemodialysis. Overall, prognosis remains guarded. Job ID: [id number]
[2018-10-10] MEDS: Sodium Chloride 0.9% 1,000 ML IV SCH ×4 (08:17→21:14)
[2018-10-10 08:19] LABS: Total PSA 0.4 ng/mL (0.0-4.0)
[2018-10-10 08:43] LABS: ALT (SGPT) 104 U/L (8-55); AST (SGOT) 131 U/L (5-34); Albumin 2.7 g/dL (3.4-4.8); Alkaline Phosphatase 973 U/L (40-150); Bilirubin, Total 17.1 mg/dL (0.2-1.2); Protein, Total 6.2 g/dL (5.8-8.1)
[2018-10-10 09:13] LABS: Bilirubin, Direct 13.2 mg/dL (0.1-0.3)
--- NOTE | 2018-10-10 14:16 | PDOC.PN ---
- Subjective Encounter Start Date: 10/10/18 Encounter Start Time: 07:30 Patient seen and examined. No new complaints. No overnight events - Objective Resuscitation Status - Order Detail: 10/08/18 08:27 Resuscitation Status Routine Resuscitation Status: FULL: Full Resuscitation Discussed with: Patient Additional comments: Brother Navjot Cuevas is his surrogate decision maker if necessary MAR Reviewed: Yes Vital Signs & Weight: Vital Signs (12 hours) Temp Pulse Resp BP Pulse Ox 10/10/18 08:00 97.4 F L 89 20 124/88 95 10/10/18 04:25 98.0 F 95 20 140/71 93 L Weight Admit Weight 247 lb 15.84 oz Weight 247 lb 14.4 oz I&O: 10/09/18 10/10/18 10/11/18 06:59 06:59 06:59 Intake Total 800 2695 Balance 800 2695 Result Diagrams: 10/10/18 04:05 10/10/18 04:05 Phys Exam - Physical Examination Constitutional: NAD HEENT: PERRLA, moist MMs icterus+ Neck: no JVD, supple Respiratory: no wheezing, no rales, no rhonchi Cardiovascular: RRR, no significant murmur, no rub Gastrointestinal: soft, non-tender, no distention, positive bowel sounds scrotal swelling Musculoskeletal: no edema, pulses present Neurological: non-focal, normal sensation Lymphatic: no nodes Psychiatric: normal affect, A&O x 3 Skin: no rash, normal turgor Dx/Plan (1) Acute kidney failure Status: Acute (2) Atelectasis, right Code(s): J98.11 - ATELECTASIS Status: Acute (3) Cholelithiases Code(s): K80.20 - CALCULUS OF GALLBLADDER W/O CHOLECYSTITIS W/O OBSTRUCTION Status: Acute (4) Metastatic cancer Code(s): C79.9 - SECONDARY MALIGNANT NEOPLASM OF UNSPECIFIED SITE Status: Acute (5) Pancreatic mass Status: Acute (6) Pleural effusion, right Code(s): J90 - PLEURAL EFFUSION, NOT ELSEWHERE CLASSIFIED Status: Acute (7) Anemia, normocytic normochromic Code(s): D64.9 - ANEMIA, UNSPECIFIED Status: Chronic (8) Morbid obesity with BMI of 40.0-44.9, adult Code(s): E66.01 - MORBID (SEVERE) OBESITY DUE TO EXCESS CALORIES; Z68.41 - BODY MASS INDEX (BMI) 40.0-44.9, ADULT Status: Chronic (9) Abnormal LFTs Code(s): R94.5 - ABNORMAL RESULTS OF LIVER FUNCTION STUDIES Status: Acute (10) Colon polyps Code(s): K63.5 - POLYP OF COLON Status: Acute (11) Colonic mass Code(s): K63.9 - DISEASE OF INTESTINE, UNSPECIFIED Status: Acute (12) Esophagitis Code(s): K20.9 - ESOPHAGITIS, UNSPECIFIED Status: Acute (13) Gastritis and duodenitis Code(s): K29.90 - GASTRODUODENITIS, UNSPECIFIED, WITHOUT BLEEDING Status: Acute (14) Jaundice Code(s): R17 - UNSPECIFIED JAUNDICE Status: Acute (15) Swelling of scrotum Code(s): N50.89 - OTHER SPECIFIED DISORDERS OF THE MALE GENITAL ORGANS Status : Acute - Plan cont current plan of care * oncology following * continue IVF * await pathology report * palliative care for goal of care * prognosis is poor * medication reviewed as below * symptomatic treatment. Review of Systems - Review of Systems ENT: negative: Ear Pain, Ear Discharge, Nose Pain, Nose Discharge, Nose Congestion, Mouth Pain, Mouth Swelling, Throat Pain, Throat Swelling, Other Respiratory: negative: Cough, Dry, Shortness of Breath, Hemoptysis, SOB with Excertion, Pleuritic Pain, Sputum, Wheezing Cardiovascular: negative: chest pain, palpitations, orthopnea, paroxysmal nocturnal dyspnea, edema, light headedness, other Gastrointestinal: negative: Nausea, Vomiting, Abdominal Pain, Diarrhea, Constipation, Melena, Hematochezia, Other Genitourinary: negative: Dysuria, Frequency, Incontinence, Hematuria, Retention , Other Musculoskeletal: negative: Neck Pain, Shoulder Pain, Arm Pain, Back Pain, Hand Pain, Leg Pain, Foot Pain, Other - Medications/Allergies Allergies/Adverse Reactions: Allergies Allergy/AdvReac Type Severity Reaction Status Date / Time No Known Drug Allergies Allergy Verified 10/08/18 07:53 Medications: Current Medications Hydrocodone Bitart/Acetaminophen ([place] 5/325) 1 tab PO Q4H PRN PRN Reason: Pain Last Admin: 10/09/18 02:22 Dose: 1 tab Artificial Tears (Tears Naturale) 2 drop EA EYE PRN PRN PRN Reason: Dry Eyes Bisacodyl (Dulcolax) 10 mg PO DAILYPRN PRN PRN Reason: Constipation Calcium Carbonate (Tums) 1,000 mg PO Q4H PRN PRN Reason: Heartburn or Indigestion Guaifenesin (Robitussin Sf) 200 mg PO Q4H PRN PRN Reason: Cough Hydralazine HCl (Apresoline) 10 mg SLOW IVP Q4H PRN PRN Reason: SBP > 180 and HR < 70 Sodium Chloride (Normal Saline 0.9%) 1,000 mls @ 125 mls/hr IV .Q8H [facility] Last Admin: 10/10/18 10:23 Dose: 1,000 mls Loperamide HCl (Imodium) 2 mg PO PRN PRN PRN Reason: Diarrhea/Loose Stools Loratadine (Claritin) 10 mg PO DAILYPRN PRN PRN Reason: Sinus Symptoms Mineral Oil/White Petrolatum (Eucerin Cream) 0 gm TOP BIDPRN PRN PRN Reason: Dry Skin Ondansetron HCl (Zofran Odt) 4 mg PO Q6H PRN PRN Reason: Nausea/Vomiting Ondansetron HCl (Zofran) 4 mg IVP Q6H PRN PRN Reason: Nausea/Vomiting Pantoprazole Sodium (Protonix) 40 mg PO DAILY [facility] Last Admin: 10/10/18 08:17 Dose: 40 mg Senna/Docusate Sodium (Senokot S) 2 tab PO BID PRN PRN Reason: Constipation Sodium Chloride ([place] Nasal [place] 0.65%) 0 ml EA NARE QIDPRN PRN PRN Reason: Nasal Congestion Throat Lozenges (Cepastat Lozenges) 1 lakshmi PO Q2H PRN PRN Reason: Sore Throat
[2018-10-10 14:45] LABS: Bilirubin Large (Negative); Blood, Urine Small (Negative); Clarity CLOUDY (Clear); Glucose, Urine (Dipstick) Negative (Negative); Leukocyte Moderate (Negative); Nitrite Negative (Negative); Protein, Urine (Dipstick) Trace mg/dL (Neg-Trace); Specific Gravity, Urine 1.013 (1.002-1.036); Urobilinogen 0.2 mg/dL (0.2-1.0)
[2018-10-10 14:47] LABS: Bacteria/HPF None Seen HPF (None Seen); Hyaline Casts/LPF 7-10 HYALINE CAST LPF (0-3 Hyaline); Pathc Cast-AUWi Flag 1.49 (0-2.49); RBC/HPF 21-50 HPF (0-3); Squamous Epithelial None Seen HPF (0-3)
[2018-10-10 15:01] LABS: Creatinine, Urine 67.87 mg/dL (63-166)
[2018-10-11] MEDS: Sodium Chloride 0.9% 1,000 ML IV SCH ×3 (02:15→04:56)
[2018-10-11 03:44] LABS: #Eosinphils 0.1 thou/uL (0.0-0.7); #Lymphocytes 0.8 thou/uL (1.20-3.40); #Monocytes 0.9 thou/uL (0.11-0.59); #Neutrophils 13.6 thou/uL (1.40-6.50); %Basophils 0.1 % (0.0-1.0); %Eosinophils 0.6 % (0.0-10.0); %Lymphocytes 5.5 % (21.0-51.0); %Monocytes 5.7 % (0.0-10.0); %Neutrophils 88.1 % (42.0-75.0); Hemoglobin 10.1 g/dL (14.0-18.0); Mean Corpuscular HGB CONC 33.6 g/dL (32.0-36.0); Mean Corpuscular Hemoglobin 29.1 pg (27.0-31.0); Mean Corpuscular Volume 86.7 fL (78.0-98.0); Mean Platelet Volume 7.3 fL (7.4-10.4); Platelet Count 319 thou/uL (130-400); RBC Distribution Width 14.8 % (11.5-14.5); Red Blood Cell (RBC) Count 3.47 mill/uL (4.70-6.10); White Blood Cell (WBC) Count 15.4 thou/uL (4.8-10.8)
[2018-10-11 04:02] LABS: Anion Gap 17 mmol/L (10-20); BUN (Urea Nitrogen) 66 mg/dL (8.4-25.7); Calc. Creatinine Clearance 46 mL/min (70-130); Calcium 8.9 mg/dL (7.8-10.44); Carbon Dioxide 16 mmol/L (23-31); Chloride 108 mmol/L (98-107); Estimated GFR-MDRD 29; Glucose 105 mg/dL (83-110); Sodium 137 mmol/L (136-145)
[2018-10-11] MEDS: cefTRIAXone\\ROCEPHIN 1 GM in Sodium Chloride 0.9% 100 ML IVPB SCH (08:15)
--- NOTE | 2018-10-11 09:48 | PDOC.PN ---
- Subjective Encounter Start Date: 10/11/18 Encounter Start Time: 07:00 this morning pt is wheezing, he is very weak and has dyspnea - Objective Resuscitation Status - Order Detail: 10/08/18 08:27 Resuscitation Status Routine Resuscitation Status: FULL: Full Resuscitation Discussed with: Patient Additional comments: Brother Navjot Cuevas is his surrogate decision maker if necessary MAR Reviewed: Yes Vital Signs & Weight: Vital Signs (12 hours) Temp Pulse Resp BP Pulse Ox 10/11/18 08:00 98.1 F 88 20 95 10/11/18 04:00 98.0 F 89 20 120/68 96 10/11/18 00:00 98.3 F 94 20 119/66 96 10/10/18 22:45 92 L Weight Admit Weight 247 lb 15.84 oz Weight 247 lb 14.4 oz I&O: 10/10/18 10/11/18 10/12/18 06:59 06:59 06:59 Intake Total 2695 4095 Balance 2695 4095 Result Diagrams: 10/11/18 03:36 10/11/18 03:36 Phys Exam - Physical Examination Constitutional: NAD HEENT: PERRLA, moist MMs icterus+ Neck: no JVD, supple Respiratory: no rales, wheezing present Cardiovascular: RRR, no significant murmur, no rub Gastrointestinal: soft, non-tender, no distention, positive bowel sounds obesity+, scrotal swelling+ Musculoskeletal: pulses present trace edema+ Neurological: non-focal, normal sensation Lymphatic: no nodes Psychiatric: normal affect, A&O x 3 Skin: no rash, normal turgor Dx/Plan (1) Acute kidney failure Status: Acute Comment: baseline kidney function not known (2) Atelectasis, right Code(s): J98.11 - ATELECTASIS Status: Acute Comment: RLL pneumonia is suspected (3) Cholelithiases Code(s): K80.20 - CALCULUS OF GALLBLADDER W/O CHOLECYSTITIS W/O OBSTRUCTION Status: Chronic Qualifiers: Cholelithiasis location: gallbladder (4) Metastatic cancer Code(s): C79.9 - SECONDARY MALIGNANT NEOPLASM OF UNSPECIFIED SITE Status: Acute Comment: suspecting from sigmoid colon mass (5) Pancreatic mass Status: Acute (6) Pleural effusion, right Code(s): J90 - PLEURAL EFFUSION, NOT ELSEWHERE CLASSIFIED Status: Acute (7) Anemia, normocytic normochromic Code(s): D64.9 - ANEMIA, UNSPECIFIED Status: Chronic (8) Morbid obesity with BMI of 40.0-44.9, adult Code(s): E66.01 - MORBID (SEVERE) OBESITY DUE TO EXCESS CALORIES; Z68.41 - BODY MASS INDEX (BMI) 40.0-44.9, ADULT Status: Chronic (9) Abnormal LFTs Code(s): R94.5 - ABNORMAL RESULTS OF LIVER FUNCTION STUDIES Status: Acute (10) Colon polyps Code(s): K63.5 - POLYP OF COLON Status: Acute (11) Colonic mass Code(s): K63.9 - DISEASE OF INTESTINE, UNSPECIFIED Status: Acute (12) Esophagitis Code(s): K20.9 - ESOPHAGITIS, UNSPECIFIED Status: Acute (13) Gastritis and duodenitis Code(s): K29.90 - GASTRODUODENITIS, UNSPECIFIED, WITHOUT BLEEDING Status: Acute (14) Jaundice Code(s): R17 - UNSPECIFIED JAUNDICE Status: Acute (15) Swelling of scrotum Code(s): N50.89 - OTHER SPECIFIED DISORDERS OF THE MALE GENITAL ORGANS Status : Acute (16) UTI (urinary tract infection) Status: Acute - Plan cont current plan of care, continue antibiotics, PT/OT, clinical social work therapist, respiratory therapy * will dc IVF * start rocephin and levaquin * send urine culture * start PT/OT * he will need placement * add duoneb * medication reviewed as below * symptomatic treatment * follow pathology report * repeat labs tomorrow. Review of Systems - Review of Systems Constitutional: weakness, malaise. negative: fever, chills, sweats, other ENT: negative: Ear Pain, Ear Discharge, Nose Pain, Nose Discharge, Nose Congestion, Mouth Pain, Mouth Swelling, Throat Pain, Throat Swelling, Other Respiratory: Shortness of Breath, Wheezing. negative: Cough, Dry, Hemoptysis, SOB with Excertion, Pleuritic Pain, Sputum Cardiovascular: negative: chest pain, palpitations, orthopnea, paroxysmal nocturnal dyspnea, edema, light headedness, other Gastrointestinal: negative: Nausea, Vomiting, Abdominal Pain, Diarrhea, Constipation, Melena, Hematochezia, Other Genitourinary: negative: Dysuria, Frequency, Incontinence, Hematuria, Retention , Other Musculoskeletal: negative: Neck Pain, Shoulder Pain, Arm Pain, Back Pain, Hand Pain, Leg Pain, Foot Pain, Other Skin: negative: Rash, Lesions, Mikael, Bruising, Other - Medications/Allergies Allergies/Adverse Reactions: Allergies Allergy/AdvReac Type Severity Reaction Status Date / Time No Known Drug Allergies Allergy Verified 10/08/18 07:53 Medications: Current Medications Hydrocodone Bitart/Acetaminophen ([place] 5/325) 1 tab PO Q4H PRN PRN Reason: Pain Last Admin: 10/09/18 02:22 Dose: 1 tab Albuterol/Ipratropium (Duoneb) 3 ml NEB [id number] [facility] Artificial Tears (Tears Naturale) 2 drop EA EYE PRN PRN PRN Reason: Dry Eyes Bisacodyl (Dulcolax) 10 mg PO DAILYPRN PRN PRN Reason: Constipation Calcium Carbonate (Tums) 1,000 mg PO Q4H PRN PRN Reason: Heartburn or Indigestion Guaifenesin (Robitussin Sf) 200 mg PO Q4H PRN PRN Reason: Cough Hydralazine HCl (Apresoline) 10 mg SLOW IVP Q4H PRN PRN Reason: SBP > 180 and HR < 70 Ceftriaxone Sodium 1 gm/ (Sodium Chloride) 100 mls @ 200 mls/hr IVPB 0800 [facility] Last Admin: 10/11/18 08:15 Dose: 100 mls Loperamide HCl (Imodium) 2 mg PO PRN PRN PRN Reason: Diarrhea/Loose Stools Loratadine (Claritin) 10 mg PO DAILYPRN PRN PRN Reason: Sinus Symptoms Mineral Oil/White Petrolatum (Eucerin Cream) 0 gm TOP BIDPRN PRN PRN Reason: Dry Skin Ondansetron HCl (Zofran Odt) 4 mg PO Q6H PRN PRN Reason: Nausea/Vomiting Ondansetron HCl (Zofran) 4 mg IVP Q6H PRN PRN Reason: Nausea/Vomiting Pantoprazole Sodium (Protonix) 40 mg PO DAILY [facility] Last Admin: 10/11/18 08:15 Dose: 40 mg Senna/Docusate Sodium (Senokot S) 2 tab PO BID PRN PRN Reason: Constipation Sodium Chloride ([place] Nasal [place] 0.65%) 0 ml EA NARE QIDPRN PRN PRN Reason: Nasal Congestion Throat Lozenges (Cepastat Lozenges) 1 lakshmi PO Q2H PRN PRN Reason: Sore Throat
--- NOTE | 2018-10-11 10:26 | PRG ---
DATE OF SERVICE: 10/11/2018 SERVICE: Renal Medicine. SUBJECTIVE: Mr. Phillip is a 73-year-old male, who was admitted due to abnormal liver findings. He had metastatic liver disease. He underwent a colonoscopy and finding of sigmoid tumor was found. We are awaiting for histopathology. We were consulted due to his acute kidney injury. We felt that this was a hemodynamically-mediated renal dysfunction. He was given IV hydration. However, he did complain of some shortness of breath yesterday and for that reason, IV fluid is off. Currently, no new complaints. The patient is being evaluated by Oncology. OBJECTIVE: VITAL SIGNS: Blood pressure is 120/68, heart rate 88, respiratory rate 20, temperature 98.1, and pulse oximetry 95%. GENERAL: Noted to be awake, alert, supine, comfortable, obese. SKIN: Adequate turgor. HEENT: He has pinkish conjunctivae. Anicteric sclerae. No neck mass. No carotid bruits. No JVD. CHEST: No deformities. LUNGS: Decreased breath sounds. HEART: Normal sinus rhythm. No murmurs, gallops, or rubs. ABDOMEN: Globular, soft, nontender. No masses. EXTREMITIES: No edema. No deformities. MEDICATIONS: Medications of October 11, 2018 reviewed. LABORATORY DATA: Laboratories of October 11, 2018; white count 15.4, hemoglobin 10.1. October 11, 2018; sodium 137, potassium 4, chloride 108, carbon dioxide 16, BUN 66, creatinine 2.26, GFR 29 mL/minute, and calcium 8.9. ASSESSMENT AND PLAN: 1. Metastatic liver/lung disease - most likely etiology is from a colon cancer. Awaiting biopsy results of the colonic mass. GI following. 2. Acute kidney injury - hemodynamically-mediated renal dysfunction. Renal function is slowly improving. Most recent creatinine is 2.26. This is after IV hydration with this patient. Continue supportive care. There is no indication for any dialytic intervention. Overall, prognosis remains guarded. Recheck basic metabolic and CBC in a.m. Job ID: [id number]
[2018-10-11] MEDS: HYDROcodone/Acetaminophen 5/325 mg Tablet PO PRN (20:23)
[2018-10-12 05:24] LABS: #Basophils 0.2 thou/uL (0.0-0.2); #Eosinphils 0.2 thou/uL (0.0-0.7); #Lymphocytes 0.6 thou/uL (1.20-3.40); #Monocytes 0.5 thou/uL (0.11-0.59); #Neutrophils 10.6 thou/uL (1.40-6.50); %Basophils 1.4 % (0.0-1.0); %Eosinophils 1.3 % (0.0-10.0); %Lymphocytes 5.3 % (21.0-51.0); %Monocytes 4.2 % (0.0-10.0); %Neutrophils 87.9 % (42.0-75.0); Hemoglobin 9.3 g/dL (14.0-18.0); Mean Corpuscular HGB CONC 32.8 g/dL (32.0-36.0); Mean Corpuscular Hemoglobin 28.8 pg (27.0-31.0); Mean Corpuscular Volume 87.6 fL (78.0-98.0); Mean Platelet Volume 7.4 fL (7.4-10.4); Platelet Count 309 thou/uL (130-400); RBC Distribution Width 15.1 % (11.5-14.5); Red Blood Cell (RBC) Count 3.23 mill/uL (4.70-6.10); White Blood Cell (WBC) Count 12.1 thou/uL (4.8-10.8)
[2018-10-12] MEDS: Diabetic Tussin 200 MG/10 ML UDCUP PO PRN (05:28)
[2018-10-12 05:50] LABS: ALT (SGPT) 94 U/L (8-55); AST (SGOT) 147 U/L (5-34); Albumin 2.2 g/dL (3.4-4.8); Alkaline Phosphatase 883 U/L (40-150); Anion Gap 15 mmol/L (10-20); BUN (Urea Nitrogen) 75 mg/dL (8.4-25.7); Bilirubin, Total 16.8 mg/dL (0.2-1.2); Calc. Creatinine Clearance 38 mL/min (70-130); Calcium 8.8 mg/dL (7.8-10.44); Carbon Dioxide 19 mmol/L (23-31); Chloride 107 mmol/L (98-107); Estimated GFR-MDRD 23; Globulin 3.6 g/dL (2.4-3.5); Glucose 97 mg/dL (83-110); Potassium 3.7 mmol/L (3.5-5.1); Protein, Total 5.8 g/dL (5.8-8.1); Sodium 137 mmol/L (136-145)
--- NOTE | 2018-10-12 06:26 | PRG ---
DATE OF SERVICE: 10/12/2018 SERVICE: Renal Medicine. SUBJECTIVE: Mr. Phillip is a 73-year-old male, who was admitted with abdominal discomfort. Imaging of the abdomen shows metastatic liver lesions as well as lung metastatic lesions. He underwent a colonoscopy, which showed a colonic mass. The feeling is that this may be the primary etiology for the metastatic lesions. We are seeing this patient for his acute kidney injury. He has been given volume repletion. Creatinine is actually fluctuating. Initially, we were treating him for a hemodynamically-mediated renal dysfunction. Creatinine today is noted at 2.76, which is slightly higher from yesterday of 2.26. GFR 23 mL/minute. No new complaints today. OBJECTIVE: VITAL SIGNS: Blood pressure is noted at 136/78, heart rate 85, respiratory rate 16, pulse ox 92%. GENERAL: Awake, supine, comfortable, not in distress. SKIN: Adequate turgor. HEENT: He has a pinkish conjunctivae. Anicteric sclerae. No neck mass. No carotid bruits. No JVD. CHEST: No deformities. LUNGS: Clear breath sounds. No wheezing. No crackles. HEART: Normal sinus rhythm. No murmur. No gallops. No rubs. ABDOMEN: Globular, soft, nontender, no masses. EXTREMITIES: No edema. No deformities. MEDICATIONS: Medications of October 12, 2018, was reviewed. LABORATORY DATA: Laboratories of October 12, 2018; white count 12.1, hemoglobin 9.3. Sodium 137, potassium 3.7, chloride 107, carbon dioxide 19, BUN 75, creatinine 2.76, GFR 23 mL/minute, glucose 97, total bilirubin 16.8, AST is 147, ALT is 94, alkaline phosphatase 883, albumin is 2.2. ASSESSMENT AND PLAN: 1. Acute kidney injury, consider hemodynamically-mediated renal dysfunction. Creatinine is noted to be fluctuating. Recently, IV fluid was placed on hold due to mild shortness of breath. The shortness of breath is most likely from a possible metastatic lung lesion. No indication for any dialytic intervention. My bias is to give another albumin infusion for a day. Please note, his albumin is decreased at 2.2. 2. Metastatic liver disease - continue supportive care. GI is following. We are awaiting for the results of the colonic biopsy. Oncology has also been consulted. Overall, agree with current management. Job ID: [id number]
[2018-10-12] MEDS: Albumin 25% 25 GM/100 ML BOT IVPB SCH ×3 (06:42→18:04)
[2018-10-12] MEDS: HYDROcodone/Acetaminophen 5/325 mg Tablet PO PRN ×2 (08:57→20:45)
[2018-10-12] MEDS: cefTRIAXone\\ROCEPHIN 1 GM in Sodium Chloride 0.9% 100 ML IVPB SCH (08:59)
--- NOTE | 2018-10-12 09:58 | PDOC.PN ---
- Subjective Encounter Start Date: 10/12/18 Encounter Start Time: 09:10 Patient seen and examined. No new complaints. No overnight events - Objective Resuscitation Status - Order Detail: 10/08/18 08:27 Resuscitation Status Routine Resuscitation Status: FULL: Full Resuscitation Discussed with: Patient Additional comments: Brother Navjot Cuevas is his surrogate decision maker if necessary MAR Reviewed: Yes Vital Signs & Weight: Vital Signs (12 hours) Temp Pulse Resp BP Pulse Ox 10/12/18 09:23 97 10/12/18 09:21 85 24 H 97 10/12/18 08:00 96 10/12/18 07:54 98.1 F 87 20 114/58 L 96 10/12/18 00:53 85 16 92 L Weight Admit Weight 247 lb 15.84 oz Weight 247 lb 14.4 oz I&O: 10/11/18 10/12/18 10/13/18 06:59 06:59 06:59 Intake Total 4095 1015 Balance 4095 1015 Result Diagrams: 10/12/18 03:50 10/12/18 03:50 Phys Exam - Physical Examination Constitutional: NAD HEENT: PERRLA, moist MMs icterus+ Neck: no JVD, supple Respiratory: no wheezing, no rhonchi Cardiovascular: RRR, no significant murmur, no rub Gastrointestinal: soft, non-tender, positive bowel sounds obesity+ Musculoskeletal: no edema, pulses present Neurological: non-focal, normal sensation Lymphatic: no nodes Psychiatric: normal affect Skin: no rash, normal turgor Dx/Plan (1) Acute kidney failure Status: Acute Comment: baseline kidney function not known (2) Atelectasis, right Code(s): J98.11 - ATELECTASIS Status: Acute Comment: RLL pneumonia is suspected (3) Cholelithiases Code(s): K80.20 - CALCULUS OF GALLBLADDER W/O CHOLECYSTITIS W/O OBSTRUCTION Status: Chronic Qualifiers: Cholelithiasis location: gallbladder (4) Metastatic cancer Code(s): C79.9 - SECONDARY MALIGNANT NEOPLASM OF UNSPECIFIED SITE Status: Acute Comment: suspecting from sigmoid colon mass (5) Pancreatic mass Status: Acute (6) Pleural effusion, right Code(s): J90 - PLEURAL EFFUSION, NOT ELSEWHERE CLASSIFIED Status: Acute (7) Anemia, normocytic normochromic Code(s): D64.9 - ANEMIA, UNSPECIFIED Status: Chronic (8) Abnormal LFTs Code(s): R94.5 - ABNORMAL RESULTS OF LIVER FUNCTION STUDIES Status: Acute (9) Colon polyps Code(s): K63.5 - POLYP OF COLON Status: Acute (10) Colonic mass Code(s): K63.9 - DISEASE OF INTESTINE, UNSPECIFIED Status: Acute (11) Esophagitis Code(s): K20.9 - ESOPHAGITIS, UNSPECIFIED Status: Acute (12) Gastritis and duodenitis Code(s): K29.90 - GASTRODUODENITIS, UNSPECIFIED, WITHOUT BLEEDING Status: Acute (13) Jaundice Code(s): R17 - UNSPECIFIED JAUNDICE Status: Acute (14) Swelling of scrotum Code(s): N50.89 - OTHER SPECIFIED DISORDERS OF THE MALE GENITAL ORGANS Status : Acute (15) UTI (urinary tract infection) Status: Acute - Plan cont current plan of care, continue antibiotics, PT/OT, community mental health social worker, respiratory therapy * continue rocephin and levaquin * repeat labs tomorrow * will get chest xray tomorrow * he will need placement * medication reviewed as below * symptomatic treatment * monitor renal function * await pathology report. Review of Systems - Review of Systems Constitutional: weakness. negative: fever, chills, sweats, malaise, other Respiratory: negative: Cough, Dry, Shortness of Breath, Hemoptysis, SOB with Excertion, Pleuritic Pain, Sputum, Wheezing Cardiovascular: negative: chest pain, palpitations, orthopnea, paroxysmal nocturnal dyspnea, edema, light headedness, other Gastrointestinal: negative: Nausea, Vomiting, Abdominal Pain, Diarrhea, Constipation, Melena, Hematochezia, Other Genitourinary: negative: Dysuria, Frequency, Incontinence, Hematuria, Retention , Other Musculoskeletal: negative: Neck Pain, Shoulder Pain, Arm Pain, Back Pain, Hand Pain, Leg Pain, Foot Pain, Other - Medications/Allergies Allergies/Adverse Reactions: Allergies Allergy/AdvReac Type Severity Reaction Status Date / Time No Known Drug Allergies Allergy Verified 10/08/18 07:53 Medications: Current Medications Hydrocodone Bitart/Acetaminophen ([place] 5/325) 1 tab PO Q4H PRN PRN Reason: Pain Last Admin: 10/12/18 08:57 Dose: 1 tab Albumin Human (Albumin 25%) 25 gm IVPB Q6HR [facility] Stop: 10/13/18 00:00 Last Admin: 10/12/18 06:42 Dose: 25 gm Albuterol/Ipratropium (Duoneb) 3 ml NEB [id number] [facility] Last Admin: 10/12/18 09:21 Dose: 3 ml Artificial Tears (Tears Naturale) 2 drop EA EYE PRN PRN PRN Reason: Dry Eyes Bisacodyl (Dulcolax) 10 mg PO DAILYPRN PRN PRN Reason: Constipation Calcium Carbonate (Tums) 1,000 mg PO Q4H PRN PRN Reason: Heartburn or Indigestion Guaifenesin (Robitussin Sf) 200 mg PO Q4H PRN PRN Reason: Cough Last Admin: 10/12/18 05:28 Dose: 200 mg Hydralazine HCl (Apresoline) 10 mg SLOW IVP Q4H PRN PRN Reason: SBP > 180 and HR < 70 Ceftriaxone Sodium 1 gm/ (Sodium Chloride) 100 mls @ 200 mls/hr IVPB 0800 [facility] Last Admin: 10/12/18 08:59 Dose: 100 mls Levofloxacin 750 mg/ Device 150 mls @ 100 mls/hr IVPB Q2DAYS [facility] Last Admin: 10/11/18 10:39 Dose: 150 mls Loperamide HCl (Imodium) 2 mg PO PRN PRN PRN Reason: Diarrhea/Loose Stools Loratadine (Claritin) 10 mg PO DAILYPRN PRN PRN Reason: Sinus Symptoms Mineral Oil/White Petrolatum (Eucerin Cream) 0 gm TOP BIDPRN PRN PRN Reason: Dry Skin Ondansetron HCl (Zofran Odt) 4 mg PO Q6H PRN PRN Reason: Nausea/Vomiting Ondansetron HCl (Zofran) 4 mg IVP Q6H PRN PRN Reason: Nausea/Vomiting Pantoprazole Sodium (Protonix) 40 mg PO DAILY [facility] Last Admin: 10/12/18 08:57 Dose: 40 mg Senna/Docusate Sodium (Senokot S) 2 tab PO BID PRN PRN Reason: Constipation Sodium Chloride ([place] Nasal [place] 0.65%) 0 ml EA NARE QIDPRN PRN PRN Reason: Nasal Congestion Throat Lozenges (Cepastat Lozenges) 1 lakshmi PO Q2H PRN PRN Reason: Sore Throat
[2018-10-13] MEDS: HYDROcodone/Acetaminophen 5/325 mg Tablet PO PRN (01:33)
[2018-10-13] MEDS: Albumin 25% 25 GM/100 ML BOT IVPB SCH (01:34)
[2018-10-13] MEDS: Diabetic Tussin 200 MG/10 ML UDCUP PO PRN (01:34)
[2018-10-13 04:21] LABS: #Eosinphils 0.3 thou/uL (0.0-0.7); #Lymphocytes 0.7 thou/uL (1.20-3.40); #Monocytes 0.5 thou/uL (0.11-0.59); %Eosinophils 2.2 % (0.0-10.0); %Lymphocytes 5.8 % (21.0-51.0); %Monocytes 4.2 % (0.0-10.0); %Neutrophils 87.8 % (42.0-75.0); Hemoglobin 8.7 g/dL (14.0-18.0); Mean Corpuscular HGB CONC 32.8 g/dL (32.0-36.0); Mean Corpuscular Hemoglobin 28.7 pg (27.0-31.0); Mean Corpuscular Volume 87.4 fL (78.0-98.0); Mean Platelet Volume 7.1 fL (7.4-10.4); Platelet Count 278 thou/uL (130-400); RBC Distribution Width 14.8 % (11.5-14.5); Red Blood Cell (RBC) Count 3.03 mill/uL (4.70-6.10); White Blood Cell (WBC) Count 12.6 thou/uL (4.8-10.8)
[2018-10-13 04:35] LABS: Anion Gap 18 mmol/L (10-20); BUN (Urea Nitrogen) 77 mg/dL (8.4-25.7); Calc. Creatinine Clearance 36 mL/min (70-130); Calcium 9.2 mg/dL (7.8-10.44); Carbon Dioxide 17 mmol/L (23-31); Chloride 108 mmol/L (98-107); Estimated GFR-MDRD 21; Glucose 114 mg/dL (83-110); Potassium 3.7 mmol/L (3.5-5.1); Sodium 139 mmol/L (136-145)
[2018-10-13] MEDS ORDERED: Furosemide 40 MG/4 ML VIAL SLOW IVP SCH (07:00)
--- NOTE | 2018-10-13 07:59 | RAD ---
PORTABLE CHEST: HISTORY: Dyspnea. COMPARISON: 10/07/2018. FINDINGS: [id number] of the right lung base suggests right effusion and right basilar atelectasis and conso lidation. There is mild vascular congestion and borderline cardiomegaly. POS: [facility]
[2018-10-13] MEDS: cefTRIAXone\\ROCEPHIN 1 GM in Sodium Chloride 0.9% 100 ML IVPB SCH (08:35)
--- NOTE | 2018-10-13 09:38 | PRG ---
DATE OF SERVICE: 10/13/2018 SERVICE: Renal Medicine. SUBJECTIVE: Mr. Phillip is a 73-year-old male, who was seen by the Renal Service for his acute kidney injury. Initially, we felt that he may simply have hemodynamically-mediated renal dysfunction. Creatinine has been fluctuating and improved initially to 2.26, but in the last few days, this is worsened back to 2.94. Please note, he has been also started with diuretics due to the shortness of breath. Chest x-ray did show some pleural effusion and mild increased lung markings. The patient complained of some mild shortness of breath. OBJECTIVE: VITAL SIGNS: Blood pressure is noted at 113/57 with heart rate of 94, respiratory rate 24, and pulse ox 94%. GENERAL: Awake, supine, comfortable, obese, not in distress. SKIN: Adequate turgor. HEENT: He has a pinkish conjunctivae and he has icteric sclerae. NECK: No neck mass. No carotid bruits. No JVD. CHEST: No deformities. LUNGS: Decreased breath sounds. HEART: Normal sinus rhythm. No murmur. No gallops. No rubs. ABDOMEN: Globular, soft, and nontender. No masses. EXTREMITIES: Trace edema. No deformities. MEDICATIONS: Medications of October 13, 2018, reviewed. LABORATORY DATA: Laboratories of October 13, 2018; white count 12.6, hemoglobin 8.7, sodium 139, potassium 3.7, chloride 108, carbon dioxide 17, BUN 77, creatinine 2.94, and calcium is 9.2. On October 10, 2018; urinalysis shows no evidence of granular casts. ASSESSMENT AND PLAN: 1. Acute kidney injury - initially this was secondary to a presumed hemodynamically-mediated renal dysfunction. However, renal function actually remains unimproved. We need to consider the possibility of ? of acute tubular necrosis with this patient. He may also have an underlying chronic renal failure due to the findings of hematuria. He has no previous documentation what his baseline creatinine is. No indication for any dialytic intervention. Supportive care. We will observe renal function with diuretics on board. 2. Shortness of breath/congestive heart failure - Lasix 60 mg IV daily has been started. 3. Metastatic liver disease/lung metastasis - secondary to a presumed colonic cancer. Awaiting results of histopathology of the biopsy of the colon mass. Job ID: [id number]
--- NOTE | 2018-10-13 10:44 | PDOC.PN ---
- Subjective Encounter Start Date: 10/13/18 Encounter Start Time: 07:00 pt is very weak, he is wheezing this morning, he has very large scrotum which is there for a long time - Objective Resuscitation Status - Order Detail: 10/08/18 08:27 Resuscitation Status Routine Resuscitation Status: FULL: Full Resuscitation Discussed with: Patient Additional comments: Brother Navjot Cuevas is his surrogate decision maker if necessary MAR Reviewed: Yes Vital Signs & Weight: Vital Signs (12 hours) Temp Pulse Resp BP Pulse Ox 10/13/18 10:14 90 20 95 10/13/18 08:00 97.6 F 95 22 H 123/65 95 10/13/18 07:16 94 24 H 94 L 10/13/18 00:42 95 Weight Admit Weight 247 lb 15.84 oz Weight 247 lb 14.4 oz I&O: 10/12/18 10/13/18 10/14/18 06:59 06:59 06:59 Intake Total 1015 1677 Balance 1015 1677 Result Diagrams: 10/13/18 04:08 10/13/18 04:08 Radiology Reviewed by me: Yes (chest xray reviewed) Phys Exam - Physical Examination Constitutional: NAD HEENT: PERRLA icterus+ Neck: no JVD Respiratory: wheezing present Cardiovascular: RRR, no significant murmur, no rub Gastrointestinal: soft, no distention, positive bowel sounds obesity+ large scrotum Musculoskeletal: pulses present, edema present Neurological: moves all 4 limbs Lymphatic: no nodes Psychiatric: normal affect Skin: no rash, normal turgor Dx/Plan (1) Acute kidney failure Status: Acute Comment: baseline kidney function not known (2) Atelectasis, right Code(s): J98.11 - ATELECTASIS Status: Acute Comment: RLL pneumonia is suspected (3) Cholelithiases Code(s): K80.20 - CALCULUS OF GALLBLADDER W/O CHOLECYSTITIS W/O OBSTRUCTION Status: Chronic Qualifiers: Cholelithiasis location: gallbladder (4) Metastatic cancer Code(s): C79.9 - SECONDARY MALIGNANT NEOPLASM OF UNSPECIFIED SITE Status: Acute Comment: suspecting from sigmoid colon mass (5) Pancreatic mass Status: Acute (6) Pleural effusion, right Code(s): J90 - PLEURAL EFFUSION, NOT ELSEWHERE CLASSIFIED Status: Acute (7) Anemia, normocytic normochromic Code(s): D64.9 - ANEMIA, UNSPECIFIED Status: Chronic (8) Abnormal LFTs Code(s): R94.5 - ABNORMAL RESULTS OF LIVER FUNCTION STUDIES Status: Acute (9) Colon polyps Code(s): K63.5 - POLYP OF COLON Status: Acute (10) Colonic mass Code(s): K63.9 - DISEASE OF INTESTINE, UNSPECIFIED Status: Acute (11) Esophagitis Code(s): K20.9 - ESOPHAGITIS, UNSPECIFIED Status: Acute (12) Gastritis and duodenitis Code(s): K29.90 - GASTRODUODENITIS, UNSPECIFIED, WITHOUT BLEEDING Status: Acute (13) Jaundice Code(s): R17 - UNSPECIFIED JAUNDICE Status: Acute (14) Swelling of scrotum Code(s): N50.89 - OTHER SPECIFIED DISORDERS OF THE MALE GENITAL ORGANS Status : Acute (15) UTI (urinary tract infection) Status: Acute - Plan cont current plan of care, continue antibiotics, PT/OT, social media developer, respiratory therapy * await pathology report * after that oncology has to decide any treatment offered or not * if not then he will need hospice * but before hospice he will need placement for his level of weakness * today his effusion gotten worse, IVF stopped, will give lasix and consult pulmonary and increase duoneb * will consult urology for his very large scrotum * his prognosis is very poor, palliative care on case for goal of care * medication reviewed as below * symptomatic treatment. Review of Systems - Review of Systems Respiratory: Shortness of Breath, Wheezing. negative: Cough, Dry, Hemoptysis, SOB with Excertion, Pleuritic Pain, Sputum Cardiovascular: negative: chest pain, palpitations, orthopnea, paroxysmal nocturnal dyspnea, edema, light headedness, other Gastrointestinal: negative: Nausea, Vomiting, Abdominal Pain, Diarrhea, Constipation, Melena, Hematochezia, Other Genitourinary: negative: Dysuria, Frequency, Incontinence, Hematuria, Retention , Other Musculoskeletal: negative: Neck Pain, Shoulder Pain, Arm Pain, Back Pain, Hand Pain, Leg Pain, Foot Pain, Other - Medications/Allergies Allergies/Adverse Reactions: Allergies Allergy/AdvReac Type Severity Reaction Status Date / Time No Known Drug Allergies Allergy Verified 10/08/18 07:53 Medications: Current Medications Hydrocodone Bitart/Acetaminophen (Alpine 5/325) 1 tab PO Q4H PRN PRN Reason: Pain Last Admin: 10/13/18 01:33 Dose: 1 tab Albuterol/Ipratropium (Duoneb) 3 ml NEB [id number] [facility] Last Admin: 10/13/18 10:14 Dose: 3 ml Albuterol/Ipratropium (Duoneb) 3 ml NEB [id number] PRN PRN Reason: SOB &/or Wheezing Artificial Tears (Tears Naturale) 2 drop EA EYE PRN PRN PRN Reason: Dry Eyes Bisacodyl (Dulcolax) 10 mg PO DAILYPRN PRN PRN Reason: Constipation Calcium Carbonate (Tums) 1,000 mg PO Q4H PRN PRN Reason: Heartburn or Indigestion Guaifenesin (Robitussin Sf) 200 mg PO Q4H PRN PRN Reason: Cough Last Admin: 10/13/18 01:34 Dose: 200 mg Hydralazine HCl (Apresoline) 10 mg SLOW IVP Q4H PRN PRN Reason: SBP > 180 and HR < 70 Ceftriaxone Sodium 1 gm/ (Sodium Chloride) 100 mls @ 200 mls/hr IVPB 0800 [facility] Last Admin: 10/13/18 08:35 Dose: 100 mls Levofloxacin 750 mg/ Device 150 mls @ 100 mls/hr IVPB Q2DAYS [facility] Last Admin: 10/11/18 10:39 Dose: 150 mls Loperamide HCl (Imodium) 2 mg PO PRN PRN PRN Reason: Diarrhea/Loose Stools Loratadine (Claritin) 10 mg PO DAILYPRN PRN PRN Reason: Sinus Symptoms Mineral Oil/White Petrolatum (Eucerin Cream) 0 gm TOP BIDPRN PRN PRN Reason: Dry Skin Ondansetron HCl (Zofran Odt) 4 mg PO Q6H PRN PRN Reason: Nausea/Vomiting Ondansetron HCl (Zofran) 4 mg IVP Q6H PRN PRN Reason: Nausea/Vomiting Pantoprazole Sodium (Protonix) 40 mg PO DAILY [facility] Last Admin: 10/13/18 08:35 Dose: 40 mg Senna/Docusate Sodium (Senokot S) 2 tab PO BID PRN PRN Reason: Constipation Sodium Chloride (Silvana Nasal [place] 0.65%) 0 ml EA NARE QIDPRN PRN PRN Reason: Nasal Congestion Throat Lozenges (Cepastat Lozenges) 1 lakshmi PO Q2H PRN PRN Reason: Sore Throat
--- NOTE | 2018-10-13 13:45 | CON ---
DATE OF CONSULTATION: 10/13/2018 CONSULTING PHYSICIAN: Elana Eller MD. REASON FOR CONSULTATION: Pleural effusion. TIME SPENT: The following encompassed 70 minutes time, of that time, greater than 50% spent with the patient and/or the patient's unit in the hospital. HISTORY OF PRESENT ILLNESS: The patient is a 73-year-old male who was originally hospitalized on 10/08/2018 by the hospitalist group for evaluation of weakness. The patient was found to have acute liver failure with extensive tumor metastasis to the liver. He was also found to have a right-sided pleural effusion. The patient states that he is actually breathing better now compared to when he came in the hospital. I have reviewed the patient's chart in details of significance, the patient underwent a colonoscopy last week which showed a large obstructing mass. The pathology from that biopsy is pending, but it is assumed to be colon cancer. The patient has been seen by the Oncology group. At the current time, he states that he is minimally short of breath but does feel some discomfort on the right side of his chest. PAST MEDICAL HISTORY: 1. Prostate cancer, treated 25 years ago. 2. Obesity. PAST SURGICAL HISTORY: He has had external beam radiation of the prostate. ALLERGIES: NONE. SOCIAL HISTORY: Quit smoking over 30 years ago. Does not consume alcohol. Does not use illicit drugs. HOME MEDICATIONS: Prior to admission, none. FAMILY MEDICAL HISTORY: Remarkable for lung cancer in the patient's father. REVIEW OF SYSTEMS: Remarkable for weight loss, jaundice, some shortness of breath. Remainder 10-point review of systems is negative. PHYSICAL EXAMINATION: VITAL SIGNS: Temperature 97.6, pulse 90, respirations 20, O2 saturation 95% on 3.5 L, and blood pressure 123/65. The patient is 5 feet 6 inches, weighs 247 pounds, body mass index is 40. GENERAL: He appears jaundiced. HEENT: Remarkable for profoundly icteric sclera. Oropharynx is clear. NECK: Without adenopathy, JVD, or bruits. LUNGS: He has diminished breath sounds in the right base approximately one half the way up and dullness to percussion in that region. His left side is clear. CARDIAC: S1 and S2, regular with a 2/6 systolic murmur. ABDOMEN: Soft, obese. Liver and spleen palpable about 4 cm below the right costal margin. EXTREMITIES: No clubbing, cyanosis, or edema. LABORATORY DATA: White blood cell count 12.6, hematocrit 26.5, and platelet count 278. Sodium 139, potassium 3.7, chloride 108, CO2 of 17, BUN 77, creatinine 2.9, glucose 114, total bilirubin 16.8, AST 147, ALT 94, alkaline phosphatase 883. His chest x-ray shows moderate-size right pleural effusion. There is some compressive atelectasis in the right base. The CT of the abdomen and pelvis done at the time of admission demonstrated the effusion, but the film did not capture the entire lung garner. There were some lung nodules present. ASSESSMENT: 1. Colon cancer with metastatic disease to the liver. 2. Obstructing jaundice. 3. Right pleural effusion. 4. Acute renal insufficiency. RECOMMENDATIONS: For the time being, I would hold off on any type of thoracentesis as the diagnosis of the cancer is most likely to be made from the colon biopsy. I would assume the effusion is probably malignant in origin. Once he knows the diagnosis and decide how he wants to pursue, then I will speak to the patient about what he wants to do with the pleural fluid. Job ID: [id number]
--- NOTE | 2018-10-13 22:04 | PRG ---
DATE OF SERVICE: SUBJECTIVE: The patient is doing okay today without any current complaints. OBJECTIVE: VITAL SIGNS: Temperature 97.6, pulse 95, respirations 20, saturating 95% on 3.5 L per nasal cannula, and blood pressure 123/65. GENERAL APPEARANCE: The patient is lying in bed, in no acute distress. RESPIRATIONS: Nonlabored. NEUROLOGIC: Nonfocal. PSYCHIATRIC: Awake, alert, and oriented x3. LABORATORY DATA: White blood cells 12.6, hemoglobin 8.7, and platelets 278. Sodium 139, potassium 3.7, chloride 108, carbon dioxide 17, BUN 77, creatinine 2.94, and GFR of 21. Total bilirubin 16.8, alkaline phosphatase 183, AST 147, and ALT 94. Albumin 2.2. CEA 11,574, and CA 19-9 468. ASSESSMENT AND PLAN: A 73-year-old male with metastatic colon cancer and extreme hyperbilirubinemia. The patient has diffuse hepatic metastatic disease taking approximately 10 x 18 cm with the liver size of 23 cm with markedly elevated bilirubin that is not amenable to stenting and relief as per GI. The patient also has severe kidney disease and poor functional status. I discussed the findings of colon cancer with the patient and his family. Chemotherapy for this patient is currently not an option as we cannot improve his hyperbilirubinemia with stenting due to his poor liver function and kidney function. I believe chemotherapy would not be tolerated and would cause more harm than good at this point. I spoke to the hospice with also potential of retirement placement as he currently lives alone at home and I believe home hospice would be an option for him at this point unless he moved in with a relative. If we can be of any further help persistence with this patient, please let us know. Palliative Care is also following. Job ID: [id number]
--- NOTE | 2018-10-14 01:10 | CON ---
DATE OF CONSULTATION: 10/13/2018 REASON FOR CONSULTATION: Consultation was requested for enlarged scrotum. HISTORY OF PRESENT ILLNESS: The patient is a 73-year-old male who was admitted with liver failure with concerns for metastatic carcinoma with primary unknown at this time. However, he had a seriously elevated CEA. The patient does seem to be alert and oriented, however, has either poor memory recall or inadequate information about his own health previously. 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 He has frequency q.2 to 3 hours and nocturia times 3 to 4. He denies any urinary leakage. He has never had retention, gross hematuria, or UTIs before. He has never had any kidney stones. PAST MEDICAL HISTORY: Significant for penile cancer for which presumably he was seen and treated at [facility], renal insufficiency. PAST SURGICAL HISTORY: Includes penectomy with perineal urethrostomy. MEDICATIONS: Include none daily. ALLERGIES: HE HAS NO ALLERGIES. SOCIAL HISTORY: He is to smoke, but he quit in 1999. He used to drink and denies excessive, but quit that around the year 1999 as well. FAMILY HISTORY: Significant for mother at 97. Father at 85 with lung cancer. Brother had cancer as well. REVIEW OF SYSTEMS: Reveals he has had decreased bowel movements with decreased appetite, some nausea and vomiting, and some pain in his left hip and knee. He has had no fever or chills. Some shortness of breath, but no cough. He has not had a recent colonoscopy, but he did already have that this day which did note both the colon mass and portions of the stomach which were biopsied. He does not recall being screened for prostate cancer and it appears he was told that he actually had prostate cancer. PHYSICAL EXAMINATION: HEENT: He is currently jaundiced with scleral icterus. NECK: JVD is difficult to assess based on body habitus. VITAL SIGNS: His temperature is 97.6, heart rate in the 90s, blood pressure 123 /65, saturating 95% on 3 to 3.5 L of nasal cannula. CHEST: He had decreased breath sounds in the right base, but otherwise clear to auscultation bilaterally. HEART: His heart was regular rate, borderline tachycardic without any obvious murmurs, gallops, or rubs. ABDOMEN: Soft, nondistended, and nontender with normoactive bowel sounds. : His scrotum was extremely large and had not changed recently and was consistent with lymphedema as there was no erythema, crepitus or concern for hydrocele. There was no buried penis. There was no penis. His testes were not palpable and his perineal urethrostomy is not obvious as there were 2 spots that could represent this, but he reports urinating through this fine. His digital rectal exam revealed an enlarged mid prostate without nodules, induration, or sidewall fixation. EXTREMITIES: He had mild bilateral lower extremity swelling, but not nearly as bad as lymphedema from his scrotum LABORATORY DATA: CBC reveals anemia of 8.7 and 26.5. BUN and creatinine of 77 and 2.95, it was 2.91 previously and 2.66 on admission, and in 2011, it was 2.51. CEA was over 11,000. PSA was 0.4 with a percent free of 20 this hospital stay. Urinalysis from 10/10/2018, revealed 11 to 20 wbc's, 21 to 50 rbc's, no bacteria , and no skin cells. CT scan without contrast reviewed personally, it revealed multiple non-urologic concerns, but basically had no hydronephrosis, no stones, no masses. Bladder appeared normal with a calcified prostate. Scrotal ultrasound reviewed from 10/09/2018, testes were not noted, but there is significant scrotal edema. No concern for air or abscess. ASSESSMENT: We have a 73-year-old male with history of penile cancer, presumably also with either radiation and/or lymphadenectomy that has now resulted in significant chronic lymphedema. There is no concern for prostate cancer at this time, but there would clearly be concern that this could be metastatic penile cancer, but that would not explain his elevated CEA. His biopsy results are pending and as oncology recommended that if these are inconclusive, then biopsy of his liver may be appropriate. At this point while he is emptying his bladder without difficulty and not having concerns for urine infection, I would not place any sort of catheter through his urethrostomy. Given his microhematuria, he could deserve outpatient cystoscopy--but clearly this is not a pressing issue. His lymphedema and his scrotum are chronic and not problematic or needing any urologic intervention. If there are further urologic concerns this hospital stay, please get back to me. Job ID: [id number] SUNDAR
[2018-10-14 05:05] LABS: ALT (SGPT) 94 U/L (8-55); AST (SGOT) 177 U/L (5-34); Albumin 2.7 g/dL (3.4-4.8); Alkaline Phosphatase 961 U/L (40-150); Anion Gap 20 mmol/L (10-20); BUN (Urea Nitrogen) 76 mg/dL (8.4-25.7); Bilirubin, Total 20.8 mg/dL (0.2-1.2); Calc. Creatinine Clearance 35 mL/min (70-130); Calcium 9.2 mg/dL (7.8-10.44); Carbon Dioxide 16 mmol/L (23-31); Chloride 108 mmol/L (98-107); Estimated GFR-MDRD 21; Globulin 3.6 g/dL (2.4-3.5); Glucose 83 mg/dL (83-110); Potassium 3.8 mmol/L (3.5-5.1); Protein, Total 6.3 g/dL (5.8-8.1); Sodium 140 mmol/L (136-145)
[2018-10-14 05:50] LABS: #Eosinphils 0.4 thou/uL (0.0-0.7); #Lymphocytes 0.8 thou/uL (1.20-3.40); #Monocytes 0.5 thou/uL (0.11-0.59); #Neutrophils 13.1 thou/uL (1.40-6.50); %Basophils 0.1 % (0.0-1.0); %Eosinophils 2.4 % (0.0-10.0); %Lymphocytes 5.6 % (21.0-51.0); %Monocytes 3.5 % (0.0-10.0); %Neutrophils 88.4 % (42.0-75.0); Anisocytosis SLIGHT = 6-15 cells (100X) (0-5/hpf); MDiff Complete? YES; Mean Corpuscular HGB CONC 32.4 g/dL (32.0-36.0); Mean Corpuscular Hemoglobin 28.1 pg (27.0-31.0); Mean Corpuscular Volume 86.6 fL (78.0-98.0); Platelet Clumps SLIGHT; Platelet Count 297 thou/uL (130-400); Platelet Morphology Comment Appears Adequate; Red Blood Cell (RBC) Count 3.19 mill/uL (4.70-6.10); White Blood Cell (WBC) Count 14.8 thou/uL (4.8-10.8)
[2018-10-14] MEDS: cefTRIAXone\\ROCEPHIN 1 GM in Sodium Chloride 0.9% 100 ML IVPB SCH (08:35)
--- NOTE | 2018-10-14 09:28 | PRG ---
DATE OF SERVICE: 10/14/2018 SERVICE: Renal Medicine. SUBJECTIVE: Mr. Phillip is a 73-year-old male, who was admitted for abdominal pain. He was found to have metastatic lesions to the liver and the lungs. Colonoscopy was done and a biopsy of the colonic mass was done, which showed adenocarcinoma. He has been evaluated by Oncology. The recommendation is that he is not a candidate for any treatment. Hospice has been initiated for this patient. We saw this patient for his acute kidney injury. His renal function based on the most recent lab work is noted to be stable with a creatinine of 2.95. No other complaints today. The patient was started on diuretics due to the mild CHF. Please note, a cardiac echo was done, which was normal. OBJECTIVE: VITAL SIGNS: Blood pressure is noted at 103/57, heart rate 105, respiratory rate 24, temperature 98.2, and pulse ox 92%. GENERAL: Awake, alert, comfortable, not in overt distress. SKIN: Adequate turgor. HEENT: He has pinkish conjunctivae. Anicteric sclerae. NECK: No neck mass. No carotid bruits. No JVD. CHEST: No deformities. LUNGS: Decreased breath sounds. HEART: Normal sinus rhythm. No murmurs. No gallops. No rubs. ABDOMEN: Globular, soft, and nontender. EXTREMITIES: Positive for edema. No deformities. MEDICATIONS: Medications of October 14, 2018, reviewed. LABORATORY DATA: Laboratories of October 14, 2018; white count 14.8, hemoglobin 9.0, sodium 140, potassium 3.8, chloride 108, carbon dioxide 16, BUN 76, and creatinine 2.95. AST is 177, ALT 94, and albumin 2.7. ASSESSMENT AND PLAN: 1. Adenocarcinoma of the colon - metastatic lesion to the liver and the lungs. Recommendation is palliative/hospice care. 2. Acute kidney injury/chronic renal failure. Stable renal function. Due to the plan, hospice care for this patient will be signing off. Please call if needed. Job ID: [id number]
--- NOTE | 2018-10-14 10:28 | PRG ---
DATE OF SERVICE: 10/14/2018 SUBJECTIVE: The patient's pathology came back adenocarcinoma of both the colon and stomach, indicating he has widespread colonic adenocarcinoma. He is not complaining of breathing problems at this time. OBJECTIVE: VITAL SIGNS: Temperature is 98.2, pulse 105, respirations 24, O2 saturation 92% on 2 L, and blood pressure 103/57. HEENT: Remarkable for icteric sclerae. NECK: No JVD. LUNGS: Diminished breath sounds at right base, left side clear. CARDIAC: S1 and S2, regular. ABDOMEN: Soft, nontender. SKIN: Jaundiced throughout. ASSESSMENT: 1. Widespread metastatic adenocarcinoma. 2. 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 PLAN: It looks like Oncology has recommended hospice/palliative care. Given that Oncology will not be treating, there is really no sense with intervening of pleural effusion since the patient is not very symptomatic from that. Instead, I would focus on the patient's comfort. Pulmonary will sign off. Please recall if further assistance is needed. Job ID: [id number]
--- NOTE | 2018-10-14 11:50 | PDOC.PN ---
- Subjective Encounter Start Date: 10/14/18 Encounter Start Time: 07:00 Patient seen and examined. No new complaints. No overnight events - Objective Resuscitation Status - Order Detail: 10/08/18 08:27 Resuscitation Status Routine Resuscitation Status: FULL: Full Resuscitation Discussed with: Patient Additional comments: Brother Navjot Cuevas is his surrogate decision maker if necessary MAR Reviewed: Yes Vital Signs & Weight: Vital Signs (12 hours) Temp Pulse Resp BP Pulse Ox 10/14/18 10:53 94 24 H 98 10/14/18 07:58 98.2 F 105 H 24 H 103/57 L 92 L 10/14/18 07:22 102 H 28 H 97 10/14/18 03:17 95 10/13/18 23:52 95 Weight Admit Weight 247 lb 15.84 oz Weight 247 lb 14.4 oz I&O: 10/13/18 10/14/18 10/15/18 06:59 06:59 06:59 Intake Total 1677 750 Balance 1677 750 Result Diagrams: 10/14/18 04:39 10/14/18 04:39 Phys Exam - Physical Examination Constitutional: NAD HEENT: PERRLA, moist MMs, sclera anicteric Neck: no JVD, supple Respiratory: no rales, wheezing present Cardiovascular: RRR, no significant murmur, no rub Gastrointestinal: soft, non-tender, no distention, positive bowel sounds obesity+ Musculoskeletal: no edema, pulses present Neurological: non-focal, normal sensation Lymphatic: no nodes Psychiatric: normal affect Skin: no rash, normal turgor Dx/Plan (1) Acute kidney failure Status: Acute Comment: baseline kidney function not known (2) Atelectasis, right Code(s): J98.11 - ATELECTASIS Status: Acute Comment: RLL pneumonia is suspected (3) Cholelithiases Code(s): K80.20 - CALCULUS OF GALLBLADDER W/O CHOLECYSTITIS W/O OBSTRUCTION Status: Chronic Qualifiers: Cholelithiasis location: gallbladder (4) Metastatic cancer Code(s): C79.9 - SECONDARY MALIGNANT NEOPLASM OF UNSPECIFIED SITE Status: Acute Comment: suspecting from sigmoid colon mass (5) Pancreatic mass Status: Acute (6) Pleural effusion, right Code(s): J90 - PLEURAL EFFUSION, NOT ELSEWHERE CLASSIFIED Status: Acute (7) Anemia, normocytic normochromic Code(s): D64.9 - ANEMIA, UNSPECIFIED Status: Chronic (8) Abnormal LFTs Code(s): R94.5 - ABNORMAL RESULTS OF LIVER FUNCTION STUDIES Status: Acute (9) Colon polyps Code(s): K63.5 - POLYP OF COLON Status: Acute (10) Colonic mass Code(s): K63.9 - DISEASE OF INTESTINE, UNSPECIFIED Status: Acute (11) Esophagitis Code(s): K20.9 - ESOPHAGITIS, UNSPECIFIED Status: Acute (12) Gastritis and duodenitis Code(s): K29.90 - GASTRODUODENITIS, UNSPECIFIED, WITHOUT BLEEDING Status: Acute (13) Jaundice Code(s): R17 - UNSPECIFIED JAUNDICE Status: Acute (14) Swelling of scrotum Code(s): N50.89 - OTHER SPECIFIED DISORDERS OF THE MALE GENITAL ORGANS Status : Acute (15) UTI (urinary tract infection) Status: Acute - Plan cont current plan of care, plan discussed w/ family * medication reviewed as below * symptomatic treatment * palliative care on case * i spoke with pt about goal of care, pt seems has no understanding about gravity of his problems * will need hospice care to prevent his readmission * discussed with his family bedside * prognosis is poor. Review of Systems - Review of Systems Constitutional: weakness ENT: negative: Ear Pain, Ear Discharge, Nose Pain, Nose Discharge, Nose Congestion, Mouth Pain, Mouth Swelling, Throat Pain, Throat Swelling, Other Respiratory: Wheezing. negative: Cough, Dry, Shortness of Breath, Hemoptysis, SOB with Excertion, Pleuritic Pain, Sputum Cardiovascular: negative: chest pain, palpitations, orthopnea, paroxysmal nocturnal dyspnea, edema, light headedness, other Gastrointestinal: negative: Nausea, Vomiting, Abdominal Pain, Diarrhea, Constipation, Melena, Hematochezia, Other Genitourinary: negative: Dysuria, Frequency, Incontinence, Hematuria, Retention , Other Musculoskeletal: negative: Neck Pain, Shoulder Pain, Arm Pain, Back Pain, Hand Pain, Leg Pain, Foot Pain, Other - Medications/Allergies Allergies/Adverse Reactions: Allergies Allergy/AdvReac Type Severity Reaction Status Date / Time No Known Drug Allergies Allergy Verified 10/08/18 07:53 Medications: Current Medications Hydrocodone Bitart/Acetaminophen ([place] 5/325) 1 tab PO Q4H PRN PRN Reason: Pain Last Admin: 10/13/18 01:33 Dose: 1 tab Albuterol/Ipratropium (Duoneb) 3 ml NEB [id number] [facility] Last Admin: 10/14/18 10:53 Dose: 3 ml Albuterol/Ipratropium (Duoneb) 3 ml NEB [id number] PRN PRN Reason: SOB &/or Wheezing Artificial Tears (Tears Naturale) 2 drop EA EYE PRN PRN PRN Reason: Dry Eyes Bisacodyl (Dulcolax) 10 mg PO DAILYPRN PRN PRN Reason: Constipation Calcium Carbonate (Tums) 1,000 mg PO Q4H PRN PRN Reason: Heartburn or Indigestion Guaifenesin (Robitussin Sf) 200 mg PO Q4H PRN PRN Reason: Cough Last Admin: 10/13/18 01:34 Dose: 200 mg Hydralazine HCl (Apresoline) 10 mg SLOW IVP Q4H PRN PRN Reason: SBP > 180 and HR < 70 Ceftriaxone Sodium 1 gm/ (Sodium Chloride) 100 mls @ 200 mls/hr IVPB 0800 [facility] Last Admin: 10/14/18 08:35 Dose: 100 mls Levofloxacin 750 mg/ Device 150 mls @ 100 mls/hr IVPB Q2DAYS [facility] Last Admin: 10/13/18 11:05 Dose: 150 mls Loperamide HCl (Imodium) 2 mg PO PRN PRN PRN Reason: Diarrhea/Loose Stools Loratadine (Claritin) 10 mg PO DAILYPRN PRN PRN Reason: Sinus Symptoms Mineral Oil/White Petrolatum (Eucerin Cream) 0 gm TOP BIDPRN PRN PRN Reason: Dry Skin Ondansetron HCl (Zofran Odt) 4 mg PO Q6H PRN PRN Reason: Nausea/Vomiting Ondansetron HCl (Zofran) 4 mg IVP Q6H PRN PRN Reason: Nausea/Vomiting Pantoprazole Sodium (Protonix) 40 mg PO DAILY [facility] Last Admin: 10/14/18 08:35 Dose: 40 mg Senna/Docusate Sodium (Senokot S) 2 tab PO BID PRN PRN Reason: Constipation Sodium Chloride ([place] Nasal [place] 0.65%) 0 ml EA NARE QIDPRN PRN PRN Reason: Nasal Congestion Throat Lozenges (Cepastat Lozenges) 1 lakshmi PO Q2H PRN PRN Reason: Sore Throat
[2018-10-15] MEDS: cefTRIAXone\\ROCEPHIN 1 GM in Sodium Chloride 0.9% 100 ML IVPB SCH (10:31)
--- NOTE | 2018-10-15 10:39 | PDOC.PN ---
- Subjective Encounter Start Date: 10/15/18 Encounter Start Time: 07:00 Patient seen and examined. No new complaints. No overnight events - Objective Resuscitation Status - Order Detail: 10/14/18 16:40 Resuscitation Status Routine Resuscitation Status: DNAR: NO Resuscitation Discussed with: Yunior BLANTON Reviewed: Yes Vital Signs & Weight: Vital Signs (12 hours) Temp Pulse Resp BP Pulse Ox 10/15/18 10:31 92 24 H 92 L 10/15/18 08:10 97.6 F 97 20 119/61 96 10/15/18 07:29 86 24 H 94 L 10/15/18 02:39 100 24 H 89 L Weight Admit Weight 247 lb 15.84 oz Weight 247 lb 14.4 oz I&O: 10/14/18 10/15/18 10/16/18 06:59 06:59 06:59 Intake Total 750 1540 Balance 750 1540 Result Diagrams: 10/14/18 04:39 10/14/18 04:39 Phys Exam - Physical Examination Constitutional: NAD HEENT: PERRLA, moist MMs icterus+ Neck: no JVD, supple Respiratory: no wheezing, no rales, no rhonchi Cardiovascular: RRR, no significant murmur, no rub Gastrointestinal: soft, non-tender, no distention, positive bowel sounds morbid obesity, scrotal swelling Musculoskeletal: no edema, pulses present Neurological: non-focal, normal sensation, moves all 4 limbs Lymphatic: no nodes Psychiatric: normal affect Skin: no rash, normal turgor Dx/Plan (1) Acute kidney failure Status: Acute Comment: baseline kidney function not known (2) Atelectasis, right Code(s): J98.11 - ATELECTASIS Status: Acute Comment: RLL pneumonia is suspected (3) Cholelithiases Code(s): K80.20 - CALCULUS OF GALLBLADDER W/O CHOLECYSTITIS W/O OBSTRUCTION Status: Chronic Qualifiers: Cholelithiasis location: gallbladder (4) Metastatic cancer Code(s): C79.9 - SECONDARY MALIGNANT NEOPLASM OF UNSPECIFIED SITE Status: Acute Comment: suspecting from sigmoid colon mass (5) Pancreatic mass Status: Acute (6) Pleural effusion, right Code(s): J90 - PLEURAL EFFUSION, NOT ELSEWHERE CLASSIFIED Status: Acute (7) Anemia, normocytic normochromic Code(s): D64.9 - ANEMIA, UNSPECIFIED Status: Chronic (8) Abnormal LFTs Code(s): R94.5 - ABNORMAL RESULTS OF LIVER FUNCTION STUDIES Status: Acute (9) Colon polyps Code(s): K63.5 - POLYP OF COLON Status: Acute (10) Colonic mass Code(s): K63.9 - DISEASE OF INTESTINE, UNSPECIFIED Status: Acute (11) Esophagitis Code(s): K20.9 - ESOPHAGITIS, UNSPECIFIED Status: Acute (12) Gastritis and duodenitis Code(s): K29.90 - GASTRODUODENITIS, UNSPECIFIED, WITHOUT BLEEDING Status: Acute (13) Jaundice Code(s): R17 - UNSPECIFIED JAUNDICE Status: Acute (14) Swelling of scrotum Code(s): N50.89 - OTHER SPECIFIED DISORDERS OF THE MALE GENITAL ORGANS Status : Acute (15) UTI (urinary tract infection) Status: Acute (16) Adenocarcinoma of colon metastatic to liver Code(s): C18.9 - MALIGNANT NEOPLASM OF COLON, UNSPECIFIED; C78.7 - SECONDARY MALIG NEOPLASM OF LIVER AND INTRAHEPATIC BILE DUCT Status: Acute (17) Morbid obesity with BMI of 40.0-44.9, adult Code(s): E66.01 - MORBID (SEVERE) OBESITY DUE TO EXCESS CALORIES; Z68.41 - BODY MASS INDEX (BMI) 40.0-44.9, ADULT Status: Chronic - Plan cont current plan of care, plan discussed w/ family * change levaquin PO * dc rocephin * hospice arrangement at alf * medication reviewed as below * symptomatic treatment * pt is now DNR confirmed. Review of Systems - Review of Systems Constitutional: weakness. negative: fever, chills, sweats, malaise, other ENT: negative: Ear Pain, Ear Discharge, Nose Pain, Nose Discharge, Nose Congestion, Mouth Pain, Mouth Swelling, Throat Pain, Throat Swelling, Other Respiratory: negative: Cough, Dry, Shortness of Breath, Hemoptysis, SOB with Excertion, Pleuritic Pain, Sputum, Wheezing Cardiovascular: negative: chest pain, palpitations, orthopnea, paroxysmal nocturnal dyspnea, edema, light headedness, other Gastrointestinal: negative: Nausea, Vomiting, Abdominal Pain, Diarrhea, Constipation, Melena, Hematochezia, Other Genitourinary: negative: Dysuria, Frequency, Incontinence, Hematuria, Retention , Other Musculoskeletal: negative: Neck Pain, Shoulder Pain, Arm Pain, Back Pain, Hand Pain, Leg Pain, Foot Pain, Other - Medications/Allergies Allergies/Adverse Reactions: Allergies Allergy/AdvReac Type Severity Reaction Status Date / Time No Known Drug Allergies Allergy Verified 10/08/18 07:53 Medications: Current Medications Hydrocodone Bitart/Acetaminophen ([place] 5/325) 1 tab PO Q4H PRN PRN Reason: Pain Last Admin: 10/13/18 01:33 Dose: 1 tab Albuterol/Ipratropium (Duoneb) 3 ml NEB [id number] [facility] Last Admin: 10/15/18 10:31 Dose: 3 ml Albuterol/Ipratropium (Duoneb) 3 ml NEB Q6OD-PB PRN PRN Reason: SOB &/or Wheezing Artificial Tears (Tears Naturale) 2 drop EA EYE PRN PRN PRN Reason: Dry Eyes Bisacodyl (Dulcolax) 10 mg PO DAILYPRN PRN PRN Reason: Constipation Calcium Carbonate (Tums) 1,000 mg PO Q4H PRN PRN Reason: Heartburn or Indigestion Guaifenesin (Robitussin Sf) 200 mg PO Q4H PRN PRN Reason: Cough Last Admin: 10/13/18 01:34 Dose: 200 mg Hydralazine HCl (Apresoline) 10 mg SLOW IVP Q4H PRN PRN Reason: SBP > 180 and HR < 70 Levofloxacin (Levaquin) 750 mg PO Q2D@1000 [facility] Loperamide HCl (Imodium) 2 mg PO PRN PRN PRN Reason: Diarrhea/Loose Stools Loratadine (Claritin) 10 mg PO DAILYPRN PRN PRN Reason: Sinus Symptoms Mineral Oil/White Petrolatum (Eucerin Cream) 0 gm TOP BIDPRN PRN PRN Reason: Dry Skin Ondansetron HCl (Zofran Odt) 4 mg PO Q6H PRN PRN Reason: Nausea/Vomiting Ondansetron HCl (Zofran) 4 mg IVP Q6H PRN PRN Reason: Nausea/Vomiting Pantoprazole Sodium (Protonix) 40 mg PO DAILY [facility] Last Admin: 10/15/18 10:21 Dose: 40 mg Senna/Docusate Sodium (Senokot S) 2 tab PO BID PRN PRN Reason: Constipation Sodium Chloride ([place] Nasal [place] 0.65%) 0 ml EA NARE QIDPRN PRN PRN Reason: Nasal Congestion Throat Lozenges (Cepastat Lozenges) 1 lakshmi PO Q2H PRN PRN Reason: Sore Throat
[2018-10-16 08:13] VITALS: BP 112/57; TEMP 97.5
--- NOTE | 2018-10-16 09:39 | PDOC.PN ---
- Subjective Encounter Start Date: 10/16/18 Encounter Start Time: 07:10 Patient seen and examined. No new complaints. No overnight events - Objective Resuscitation Status - Order Detail: 10/14/18 16:40 Resuscitation Status Routine Resuscitation Status: DNAR: NO Resuscitation Discussed with: Yunior BLANTON Reviewed: Yes Vital Signs & Weight: Vital Signs (12 hours) Temp Pulse Resp BP Pulse Ox 10/16/18 08:00 97.5 F L 90 20 112/57 L 97 10/16/18 06:48 94 L 10/16/18 06:47 93 20 94 L 10/15/18 23:00 85 20 95 Weight Admit Weight 247 lb 15.84 oz Weight 247 lb 14.4 oz I&O: 10/15/18 10/16/18 10/17/18 06:59 06:59 06:59 Intake Total 1540 Balance 1540 Result Diagrams: 10/14/18 04:39 10/14/18 04:39 Phys Exam - Physical Examination Constitutional: NAD HEENT: PERRLA, moist MMs Neck: no JVD, supple Respiratory: no wheezing, no rhonchi, wheezing present Cardiovascular: RRR, no significant murmur, no rub Gastrointestinal: soft, non-tender, no distention, positive bowel sounds obesity+ Musculoskeletal: no edema, pulses present Neurological: non-focal Lymphatic: no nodes Psychiatric: normal affect Skin: no rash, normal turgor Dx/Plan (1) Acute kidney failure Status: Acute Comment: baseline kidney function not known (2) Atelectasis, right Code(s): J98.11 - ATELECTASIS Status: Acute Comment: RLL pneumonia is suspected (3) Cholelithiases Code(s): K80.20 - CALCULUS OF GALLBLADDER W/O CHOLECYSTITIS W/O OBSTRUCTION Status: Chronic Qualifiers: Cholelithiasis location: gallbladder (4) Metastatic cancer Code(s): C79.9 - SECONDARY MALIGNANT NEOPLASM OF UNSPECIFIED SITE Status: Acute Comment: suspecting from sigmoid colon mass (5) Pancreatic mass Status: Acute (6) Pleural effusion, right Code(s): J90 - PLEURAL EFFUSION, NOT ELSEWHERE CLASSIFIED Status: Acute (7) Anemia, normocytic normochromic Code(s): D64.9 - ANEMIA, UNSPECIFIED Status: Chronic (8) Abnormal LFTs Code(s): R94.5 - ABNORMAL RESULTS OF LIVER FUNCTION STUDIES Status: Acute (9) Colon polyps Code(s): K63.5 - POLYP OF COLON Status: Acute (10) Colonic mass Code(s): K63.9 - DISEASE OF INTESTINE, UNSPECIFIED Status: Acute (11) Esophagitis Code(s): K20.9 - ESOPHAGITIS, UNSPECIFIED Status: Acute (12) Gastritis and duodenitis Code(s): K29.90 - GASTRODUODENITIS, UNSPECIFIED, WITHOUT BLEEDING Status: Acute (13) Jaundice Code(s): R17 - UNSPECIFIED JAUNDICE Status: Acute (14) Swelling of scrotum Code(s): N50.89 - OTHER SPECIFIED DISORDERS OF THE MALE GENITAL ORGANS Status : Acute (15) UTI (urinary tract infection) Status: Acute (16) Adenocarcinoma of colon metastatic to liver Code(s): C18.9 - MALIGNANT NEOPLASM OF COLON, UNSPECIFIED; C78.7 - SECONDARY MALIG NEOPLASM OF LIVER AND INTRAHEPATIC BILE DUCT Status: Acute (17) Morbid obesity with BMI of 40.0-44.9, adult Code(s): E66.01 - MORBID (SEVERE) OBESITY DUE TO EXCESS CALORIES; Z68.41 - BODY MASS INDEX (BMI) 40.0-44.9, ADULT Status: Chronic - Plan cont current plan of care, continue antibiotics, PT/OT, social services specialist, respiratory therapy * once we have hospice arranged at [place], will consider discharge for comfort care only * prognosis is very poor * medication reviewed as below * symptomatic treatment. Review of Systems - Review of Systems Constitutional: weakness, malaise. negative: fever, chills, sweats, other Respiratory: Shortness of Breath, Wheezing. negative: Cough, Dry, Hemoptysis, SOB with Excertion, Pleuritic Pain, Sputum Cardiovascular: negative: chest pain, palpitations, orthopnea, paroxysmal nocturnal dyspnea, edema, light headedness, other Gastrointestinal: negative: Nausea, Vomiting, Abdominal Pain, Diarrhea, Constipation, Melena, Hematochezia, Other Genitourinary: negative: Dysuria, Frequency, Incontinence, Hematuria, Retention , Other Musculoskeletal: negative: Neck Pain, Shoulder Pain, Arm Pain, Back Pain, Hand Pain, Leg Pain, Foot Pain, Other Skin: negative: Rash, Lesions, Mikael, Bruising, Other - Medications/Allergies Allergies/Adverse Reactions: Allergies Allergy/AdvReac Type Severity Reaction Status Date / Time No Known Drug Allergies Allergy Verified 10/08/18 07:53 Medications: Current Medications Hydrocodone Bitart/Acetaminophen ([place] 5/325) 1 tab PO Q4H PRN PRN Reason: Pain Last Admin: 10/13/18 01:33 Dose: 1 tab Albuterol/Ipratropium (Duoneb) 3 ml NEB [id number] [facility] Last Admin: 10/16/18 06:47 Dose: 3 ml Albuterol/Ipratropium (Duoneb) 3 ml NEB [id number] PRN PRN Reason: SOB &/or Wheezing Artificial Tears (Tears Naturale) 2 drop EA EYE PRN PRN PRN Reason: Dry Eyes Bisacodyl (Dulcolax) 10 mg PO DAILYPRN PRN PRN Reason: Constipation Calcium Carbonate (Tums) 1,000 mg PO Q4H PRN PRN Reason: Heartburn or Indigestion Guaifenesin (Robitussin Sf) 200 mg PO Q4H PRN PRN Reason: Cough Last Admin: 10/13/18 01:34 Dose: 200 mg Hydralazine HCl (Apresoline) 10 mg SLOW IVP Q4H PRN PRN Reason: SBP > 180 and HR < 70 Levofloxacin (Levaquin) 750 mg PO Q2D@1000 [facility] Last Admin: 10/15/18 10:45 Dose: 750 mg Loperamide HCl (Imodium) 2 mg PO PRN PRN PRN Reason: Diarrhea/Loose Stools Loratadine (Claritin) 10 mg PO DAILYPRN PRN PRN Reason: Sinus Symptoms Mineral Oil/White Petrolatum (Eucerin Cream) 0 gm TOP BIDPRN PRN PRN Reason: Dry Skin Ondansetron HCl (Zofran Odt) 4 mg PO Q6H PRN PRN Reason: Nausea/Vomiting Ondansetron HCl (Zofran) 4 mg IVP Q6H PRN PRN Reason: Nausea/Vomiting Pantoprazole Sodium (Protonix) [address] [facility] Last Admin: 10/16/18 08:13 Dose: 40 mg Senna/Docusate Sodium (Senokot S) 2 tab PO BID PRN PRN Reason: Constipation Sodium Chloride ([place] Nasal [place] 0.65%) 0 ml EA NARE QIDPRN PRN PRN Reason: Nasal Congestion Throat Lozenges (Cepastat Lozenges) 1 lakshmi PO Q2H PRN PRN Reason: Sore Throat
--- NOTE | 2018-10-16 11:21 | DIS ---
DATE OF ADMISSION: 10/08/2018 DATE OF DISCHARGE: 10/16/2018 PRIMARY CARE PHYSICIAN: Yojana Call Admission. DISCHARGE DISPOSITION: [facility] with hospice. PRIMARY DISCHARGE DIAGNOSES: 1. Acute kidney failure. 2. Metastatic adenocarcinoma of colon with metastasis to liver and lungs. 3. Right pleural effusion with right atelectasis. 4. Colon polyp and colonic mass due to adenocarcinoma. 5. Esophagitis, gastritis, and duodenitis. 6. Jaundice due to metastatic liver lesion. 7. Significant physical deconditioning. 8. Massive enlargement of scrotum from penile cancer. 9. Urinary tract infection. 10. Pneumonia. 11. Sepsis with acute organ dysfunction. 12. Abnormal LFT. SECONDARY DISCHARGE DIAGNOSES: 1. Morbid obesity with BMI of 40. 2. Cholelithiasis. 3. Normocytic normochromic anemia. 4. History of penile cancer. PRIMARY PROCEDURE/OPERATION: EGD was done, which showed gastritis, duodenitis, and esophagitis. Colonoscopy showed colon polyp and sigmoid colon mass, which was consistent with adenocarcinoma. RADIOLOGICAL INVESTIGATION: Abdomen and pelvis CT scan showed metastatic liver and lung disease with pleural effusion. Ultrasound of liver consistent with metastatic lesion. Knee x-ray and hip x-ray were negative for any fracture. Testicular ultrasound showed massive testicular enlargement. Chest x-ray was consistent with pleural effusion and atelectasis. Echocardiography showed normal EF. SIGNIFICANT LABORATORY DATA: WBC 14.8, hemoglobin 9.0, and platelets 297. Sodium 140, potassium 3.8, BUN 76, creatinine 2.95, bilirubin 20.8, AST is 177, ALT 94, alkaline phosphatase 961, and albumin 2.7. Serum drug screen negative. Hepatitis profile negative. DISCHARGE MEDICATIONS: The patient is discharged to [facility] with hospice for comfort care only. He will be receiving, 1. DuoNeb therapy q.6 hourly. 2. Levaquin 250 mg p.o. daily for 7 more days. 3. Protonix 40 mg p.o. daily. Further medication to provide comfort care will be deferred to hospice team. CONTRAINDICATION: None. CODE STATUS: DNR. INPATIENT FLUTE TEACHER: The patient was initially consulted for renal failure by Dr. Lantigua. Dr. Boyd was consulted for abnormal LFT. The patient was evaluated by Oncology. Pulmonary Group was consulted as well. Urology Group was also consulted. TEST RESULTS PENDING ON DISCHARGE: None. ALLERGIES: NO KNOWN DRUG ALLERGIES. DISCHARGE PLAN: Post hospital, [facility]. HOSPITAL COURSE: A 73-year-old male, who was admitted by Dr. Vazquez on October 08, 2018. Please see his H and P for further details. The patient was admitted on that day. At that time, the patient was having generalized weakness. He had abnormal LFT and he was found with metastatic cancer. Initially, primary site was not clear, but he had metastasis to liver and lungs. He also had obstructive jaundice and that is why we consulted bumper machine operator and they did EGD and colonoscopy and found with colonic mass. Pathology report ultimately came back positive for adenocarcinoma and it was consistent with metastatic adenocarcinoma. This patient also had significant physical deconditioning and he was not a good candidate for any kind of further treatment. The patient also had acute kidney failure and that is why the patient was given IV fluid, but IV fluid made him worse with fluid overload status and that is why we have to stop IV fluid and started giving him Lasix. We also started giving him empiric antibiotic therapy with Rocephin and Levaquin for his suspected pneumonia. We also consulted Pulmonary Group for possible thoracentesis, but given his terminal nature of the illness, the patient was only treated conservatively. We had Palliative Care on consult and Oncology on consult and Oncology recommended that this patient is not a candidate for any kind of further treatment and his prognosis is extremely poor. At that point, with help of Palliative Care, we discussed with the family member and the patient about goal of care and he was made DNR. The patient is only interested in comfort care and with help of trimming caser, we arranged jail home as well as hospice care at the [facility]. I have seen and examined the patient at the bedside today. Please see my progress note from today for further detail. Paperwork for discharge done and discharge medication reconciliation done. The patient will get comfort care at [facility]. TIME SPENT: Total time spent on discharge day, 31 minutes. Job ID: [id number]
== END 2018-10-16 13:15 | disposition hospice, inpatient (51) | DRG 374 ==
LOC: ERS 20:51 → ONC 10-08 01:10
PROVIDERS: ADMIT Internal Medicine; ATTEND Internal Medicine
PROC: 0DB78ZX Excision of Stomach, Pylorus, Via Natural or Artificial Opening Endoscopic, Diagnostic (ICD-10-PCS; principal; 2018-10-09)
PROC: 0DBN8ZX Excision of Sigmoid Colon, Via Natural or Artificial Opening Endoscopic, Diagnostic (ICD-10-PCS; 2018-10-09)
DX: C18.7 Malignant neoplasm of sigmoid colon (principal); A41.9 Sepsis, unspecified organism; K72.00 Acute and subacute hepatic failure without coma; K83.1 Obstruction of bile duct; J18.9 Pneumonia, unspecified organism; C78.7 Secondary malignant neoplasm of liver and intrahepatic bile duct; N17.9 Acute kidney failure, unspecified; C78.00 Secondary malignant neoplasm of unspecified lung; Z68.41 Body mass index [BMI] 40.0-44.9, adult; N39.0 Urinary tract infection, site not specified; J91.0 Malignant pleural effusion; Z66 Do not resuscitate; M25.562 Pain in left knee; E66.01 Morbid (severe) obesity due to excess calories; D64.9 Anemia, unspecified; K63.5 Polyp of colon; K20.9 Esophagitis, unspecified; K29.90 Gastroduodenitis, unspecified, without bleeding; Z85.46 Personal history of malignant neoplasm of prostate; Z87.891 Personal history of nicotine dependence
CPT/HCPCS: 36415; 71045; 74176; 76705; 76870; 80048; 80053; 80074; 80076; 80307; 81001; 82105; 82140; 82378; 82570; 83605; 84153; 84154; 84300; 85025; 86301; 88305; 88312; 88341; 88342; 90471; 90662; 90670; 93005; 93306; 94640; G0008; G0009; J0696; J1940; J1956; J2001; J2704; J7050; J7620; P9047; Q9967